=== PATIENT | male | born 1945 | race Hispanic/Latino ===

== ENCOUNTER → 2018-06-10 | Outpatient (CLI) | payer MEDICARE, OTHER | END | disposition home or self-care (01) | LOC: OIH 16:18 | PROVIDERS: ATTEND Family Medicine | DX: I70.0 Atherosclerosis of aorta (principal); Z87.891 Personal history of nicotine dependence | CPT/HCPCS: 71046 ==

== ENCOUNTER 2020-04-02 11:58 | Inpatient (IN) | payer MEDICARE, OTHER ==
[~2020-04-02] VITALS: Ht 167.6 cm; Wt 71.1 kg
[2020-04-02] MEDS ORDERED: IOHEXOL-350 75 ML VIAL IV ONE (12:25)
[2020-04-02 13:02] LABS: BASOPHILS % (AUTO) 0.2 % (0.0-5.0); HEMATOCRIT 41.1 % (42-54); LYMPHOCYTES % (AUTO) 5.8 % (21.0-51.0); MEAN CORPUSCULAR HGB CONC 34.3 g/dL (32.0-36.0); MEAN CORPUSCULAR VOLUME 87.4 fL (79-99); MONOCYTES % (AUTO) 5.6 % (3.0-13.0); PLATELET COUNT (AUTO) 168 K/uL (130-400); RED CELL DISTRIBUTION WIDTH 12.1 % (11.0-15.5)
[2020-04-02 13:44] LABS: CREATININE 0.9 mg/dL (0.5-1.5); POTASSIUM 3.7 mmol/L (3.5-5.1)
[2020-04-02 13:51] LABS: INR 0.93 (0.85-1.15); PARTIAL THROMBOPLASTIN TIME 24.6 SEC (26.3-35.5); PROTHROMBIN TIME 10.1 SEC (9.6-11.6)
[2020-04-02 14:07] LABS: BILIRUBIN,TOTAL 1.4 mg/dL (0.2-1.0); TOTAL PROTEIN, SERUM 7.7 g/dL (6.0-8.3)
[2020-04-02] MEDS ORDERED: ASPIRIN 300 MG SUPPOSITORY PR ONE (15:04)
[2020-04-02 15:49] LABS: APPEARANCE,URINE Clear (CLEAR); BILIRUBIN,URINE Negative (NEGATIVE); COLOR,URINE Yellow (YELLOW); GLUCOSE, URINE (UA) Negative (NEGATIVE); KETONES,URINE Trace mg/dL (NEGATIVE); LEUKOCYTE ESTERASE ,URINE Negative (NEGATIVE); NITRATE,URINE Negative (NEGATIVE); OCCULT BLOOD,URINE Trace (NEGATIVE); PH,URINE 7.5 (5.0-8.0); PROTEIN,URINE Negative (NEGATIVE)
[2020-04-02 15:55] LABS: AMPHET/METH SCREEN,URINE NEGATIVE (NEGATIVE); BARBITURATE SCREEN, URINE NEGATIVE (NEGATIVE); BENZODIAZEPINES SCREEN,URINE NEGATIVE (NEGATIVE); CANNABINOID SCREEN,URINE NEGATIVE (NEGATIVE); COCAINE SCREEN,URINE NEGATIVE (NEGATIVE); OPIATE SCREEN,URINE NEGATIVE (NEGATIVE); PHENCYCLIDINE SCREEN,URINE NEGATIVE (NEGATIVE)
[2020-04-02 16:30] LABS: RBC,URINE 0-1 /HPF (0-1)
[2020-04-02 16:31] LABS: BACTERIA,URINE Rare /HPF (None Seen); SQUAMOUS EPITHELIAL CELL,UR None Seen /HPF (0-2); WBC,URINE 0-1 /HPF (0-1)
[2020-04-02] MEDS: SODIUM CHLORIDE 0.9% 1000ML 1,000 ML IV SCH (17:04)
[2020-04-02] MEDS ORDERED: ACETAMINOPHEN 325 MG TAB PO PRN ×2 (17:15)
[2020-04-02] MEDS: CEFTRIAXONE SODIUM 1 GM IV SCH (17:15)
[2020-04-02] MEDS ORDERED: ONDANSETRON HCL 4 MG/2 ML VIAL IV PRN (17:15)
[2020-04-02] MEDS ORDERED: MORPHINE SULFATE 2 MG/ML 1ML SYG IV PRN (17:15)
[2020-04-02] MEDS ORDERED: CEFTRIAXONE SODIUM 1 GM ONE (18:00)
[2020-04-02] MEDS ORDERED: SODIUM CHLORIDE 0.9% 1000ML 1,000 ML IV ONE (18:01)
[2020-04-02] MEDS ORDERED: SODIUM CHLORIDE 0.9% 50 ML IV ONE (18:01)
[2020-04-02 19:10] LABS: TROPONIN I 1.02 ng/mL (0.00-0.06)
[2020-04-02 19:45] VITALS: BP 126/62
--- NOTE | 2020-04-02 19:45 | NUR ---
Received pt, conversant with NS at 100cc/hr infusing well, routine assessment done, pt noted flaccid on his left side, reminded NPO, denies discomfort, verified home medication, unable to recall, we will need to follow up with family once someone will call for the pt.
[2020-04-02] MEDS: ATORVASTATIN CALCIUM 40 MG TABLET PO SCH (21:00)
[2020-04-02] MEDS: FAMOTIDINE/PF 20 MG/2 ML VIAL IV SCH (21:00)
[2020-04-02] MEDS ORDERED: ATORVASTATIN CALCIUM 40 MG TABLET ONE (21:34)
[2020-04-02] MEDS ORDERED: FAMOTIDINE/PF 20 MG/2 ML VIAL IV ONE (21:35)
[2020-04-03] VITALS: BP 139/75
[2020-04-03 02:04] LABS: TROPONIN I 1.36 ng/mL (0.00-0.06)
[2020-04-03] MEDS: SODIUM CHLORIDE 0.9% 1000ML 1,000 ML IV SCH ×2 (03:04→13:04)
[2020-04-03] MEDS ORDERED: SODIUM CHLORIDE 0.9% 1000ML 1,000 ML IV ONE (03:46)
[2020-04-03 04:00] VITALS: BP 142/78
[2020-04-03] MEDS ORDERED: CEFTRIAXONE SODIUM 1 GM ONE ×2 (05:08→16:35)
[2020-04-03 07:05] LABS: BASOPHILS % (AUTO) 0.2 % (0.0-5.0); EOSINOPHILS % (AUTO) 1.3 % (0.0-8.0); HEMATOCRIT 40.9 % (42-54); LYMPHOCYTES % (AUTO) 12.5 % (21.0-51.0); MEAN CORPUSCULAR HEMOGLOBIN 30.2 pg (27.0-33.0); MEAN CORPUSCULAR HGB CONC 34.2 g/dL (32.0-36.0); MEAN CORPUSCULAR VOLUME 88.1 fL (79-99); MONOCYTES % (AUTO) 6.7 % (3.0-13.0); NEUTROPHILS % (AUTO) 78.9 % (40.0-77.0); PLATELET COUNT (AUTO) 163 K/uL (130-400); RED BLOOD CELL COUNT(AUTO) 4.64 MIL/uL (4.50-6.20); RED CELL DISTRIBUTION WIDTH 12.2 % (11.0-15.5); WHITE BLOOD COUNT (AUTO) 8.6 K/uL (4.8-10.8)
[2020-04-03 07:43] LABS: ALANINE AMINOTRANSFERASE 31 U/L (12-78); ALBUMIN 3.3 g/dL (3.5-5.0); ASPARTATE AMINOTRANSFERASE 47 U/L (10-37); BILIRUBIN,TOTAL 1.7 mg/dL (0.2-1.0); CARBON DIOXIDE 25 mmol/L (21-32); CHLORIDE 105 mmol/L (101-111); CREATININE 0.7 mg/dL (0.5-1.5); GLOMERULAR FILTR. RATE CALC 117 mL/min (>60); GLUCOSE,RANDOM 98 mg/dL (70-105); MYOGLOBIN 193 ng/mL (10-92); POTASSIUM 3.6 mmol/L (3.5-5.1); SODIUM SERUM 139 mmol/L (136-145); TOTAL PROTEIN, SERUM 6.2 g/dL (6.0-8.3); TROPONIN I 0.08 ng/mL (0.00-0.06); UREA NITROGEN, BLOOD 10 mg/dL (7-18)
[2020-04-03] MEDS: ASPIRIN 81MG TAB.CHEW PO SCH (09:00)
[2020-04-03] MEDS ORDERED: ENOXAPARIN SODIUM 40 MG/0.4 ML SYRINGE SQ SCH (09:00)
[2020-04-03] MEDS: FAMOTIDINE/PF 20 MG/2 ML VIAL IV SCH ×2 (09:00→21:00)
[2020-04-03] MEDS ORDERED: ASPIRIN 81MG TAB.CHEW ONE (09:47)
[2020-04-03] MEDS ORDERED: FAMOTIDINE/PF 20 MG/2 ML VIAL IV ONE (09:48)
[2020-04-03] MEDS ORDERED: ENOXAPARIN SODIUM 40 MG/0.4 ML SYRINGE SQ ONE (09:48)
[2020-04-03 10:45] LABS: CREATINE KINASE, TOTAL 1473 U/L (21-232)
--- NOTE | 2020-04-03 14:43 | NUR ---
cm note call made to pts listed contact son deborah darby, pt tod robbins with spouse, independent with ambulation and adls. pt drives, no dme. states dcplan is home or dependent on md recommendations, possible rehab. dependent on pt recovery. Addendum: 04/03/20 at 1448 by OMARI RAO CM Amended: Links added.
[2020-04-03 15:39] LABS: TROPONIN I 1.01 ng/mL (0.00-0.06)
[2020-04-03] MEDS ORDERED: ENOXAPARIN SODIUM 80 MG/0.8 ML SQ SCH (21:00)
[2020-04-03] MEDS: ATORVASTATIN CALCIUM 40 MG TABLET PO SCH (21:00)
[2020-04-03] MEDS ORDERED: ENOXAPARIN SODIUM 80 MG/0.8 ML SQ ONE (22:26)
[2020-04-03] MEDS ORDERED: FAMOTIDINE 20MG TAB 20 MG TAB ONE (22:26)
[2020-04-03] MEDS ORDERED: ATORVASTATIN CALCIUM 40 MG TABLET ONE (22:27)
[2020-04-04] MEDS: SODIUM CHLORIDE 0.9% 1000ML 1,000 ML IV SCH (04:12)
[2020-04-04] MEDS ORDERED: CEFTRIAXONE SODIUM 1 GM ONE ×2 (05:47→10:24)
--- NOTE | 2020-04-04 07:38 | NUR ---
Patient still in ER department 04/04/2020, awaiting for patient to be transferred to medical floor or to [facility] unit in order to be able to initiate skilled Physical Therapy Evaluation as ordered by BRITTANY Fox as of 04/03/2020. Addendum: 04/04/20 at 0740 by YING ROLLINS, PT PT Amended: Links added.
[2020-04-04 07:57] LABS: ALBUMIN 2.7 g/dL (3.5-5.0); BILIRUBIN,TOTAL 1.6 mg/dL (0.2-1.0); CREATININE 0.7 mg/dL (0.5-1.5); POTASSIUM 3.6 mmol/L (3.5-5.1); TOTAL PROTEIN, SERUM 6.3 g/dL (6.0-8.3)
[2020-04-04 08:09] LABS: CRP QUANTITATIVE 155.4 mg/L (0.00-9.0)
[2020-04-04] MEDS: FAMOTIDINE/PF 20 MG/2 ML VIAL IV SCH ×2 (09:00→21:00)
[2020-04-04] MEDS ORDERED: ASPIRIN 81MG TAB.CHEW ONE (10:23)
[2020-04-04] MEDS ORDERED: FAMOTIDINE/PF 20 MG/2 ML VIAL IV ONE (10:24)
[2020-04-04 10:57] LABS: HEMATOCRIT 38.2 % (42-54); MEAN CORPUSCULAR HEMOGLOBIN 30.4 pg (27.0-33.0); MEAN CORPUSCULAR VOLUME 89.5 fL (79-99); RED BLOOD CELL COUNT(AUTO) 4.27 MIL/uL (4.50-6.20); RED CELL DISTRIBUTION WIDTH 12.5 % (11.0-15.5); WHITE BLOOD COUNT (AUTO) 10.1 K/uL (4.8-10.8)
--- NOTE | 2020-04-04 13:00 | NUR ---
DISCHARGE PLANNING WITH SON- PT NEEDS PLACEMENT 2/2 TO HEMIPARESIS STILL PENDING PT NOTES, BUT MD NOTES SAY 1/ STRENGTH IN LUE, AND DYSARTHRIA NEEDS PT, OT, ST; WAITING COVID STATUS TO MOVE OUT OF THE ER VERBAL INGE PER SON- PACKET PREPARED FIRST CHOICE [facility], SECOND CHOICE [facility] Addendum: 04/04/20 at 1610 by CAROLINA VALDES RN CM Amended: Links added.
[2020-04-04] MEDS ORDERED: IOHEXOL-350 75 ML VIAL IV ONE (14:54)
[2020-04-04 15:18] LABS: BASOPHILS % (AUTO) 0.3 % (0.0-5.0); EOSINOPHILS % (AUTO) 1.4 % (0.0-8.0); HEMATOCRIT 39.2 % (42-54); LYMPHOCYTES % (AUTO) 14.1 % (21.0-51.0); MEAN CORPUSCULAR HEMOGLOBIN 30.4 pg (27.0-33.0); MEAN CORPUSCULAR HGB CONC 34.7 g/dL (32.0-36.0); MEAN CORPUSCULAR VOLUME 87.5 fL (79-99); MONOCYTES % (AUTO) 6.3 % (3.0-13.0); NEUTROPHILS % (AUTO) 77.7 % (40.0-77.0); PLATELET COUNT (AUTO) 147 K/uL (130-400); RED BLOOD CELL COUNT(AUTO) 4.48 MIL/uL (4.50-6.20); RED CELL DISTRIBUTION WIDTH 12.1 % (11.0-15.5); WHITE BLOOD COUNT (AUTO) 8.7 K/uL (4.8-10.8)
[2020-04-04] MEDS: DOXYCYCLINE HYCLATE 100 MG TABLET PO SCH (21:00)
[2020-04-04] MEDS: ATORVASTATIN CALCIUM 40 MG TABLET PO SCH (21:00)
[2020-04-04] MEDS ORDERED: FAMOTIDINE 20MG TAB 20 MG TAB ONE (21:06)
[2020-04-04] MEDS ORDERED: ATORVASTATIN CALCIUM 40 MG TABLET ONE (21:07)
[2020-04-04] MEDS ORDERED: DOXYCYCLINE HYCLATE 100 MG TABLET PO ONE (21:07)
[2020-04-05] MEDS ORDERED: CEFTRIAXONE SODIUM 1 GM ONE (05:19)
[2020-04-05 06:58] LABS: BASOPHILS % (AUTO) 0.5 % (0.0-5.0); EOSINOPHILS % (AUTO) 1.9 % (0.0-8.0); HEMATOCRIT 39.1 % (42-54); LYMPHOCYTES % (AUTO) 16.7 % (21.0-51.0); MEAN CORPUSCULAR HEMOGLOBIN 29.6 pg (27.0-33.0); MEAN CORPUSCULAR VOLUME 87.1 fL (79-99); MONOCYTES % (AUTO) 7.9 % (3.0-13.0); NEUTROPHILS % (AUTO) 72.5 % (40.0-77.0); PLATELET COUNT (AUTO) 154 K/uL (130-400); RED BLOOD CELL COUNT(AUTO) 4.49 MIL/uL (4.50-6.20); RED CELL DISTRIBUTION WIDTH 12.1 % (11.0-15.5); WHITE BLOOD COUNT (AUTO) 6.5 K/uL (4.8-10.8)
[2020-04-05 07:22] LABS: BILIRUBIN,TOTAL 0.8 mg/dL (0.2-1.0); CREATININE 0.5 mg/dL (0.5-1.5); CRP QUANTITATIVE 107.5 mg/L (0.00-9.0); TOTAL PROTEIN, SERUM 4.3 g/dL (6.0-8.3)
[2020-04-05 07:26] LABS: POTASSIUM 2.6 mmol/L (3.5-5.1)
[2020-04-05] MEDS ORDERED: ASPIRIN 81MG TAB.CHEW ONE (07:27)
[2020-04-05] MEDS ORDERED: DOXYCYCLINE HYCLATE 100 MG TABLET PO ONE (07:27)
[2020-04-05] MEDS ORDERED: FAMOTIDINE/PF 20 MG/2 ML VIAL IV ONE (07:28)
[2020-04-05] MEDS: ASPIRIN 81MG TAB.CHEW PO SCH (09:00)
[2020-04-05] MEDS: DOXYCYCLINE HYCLATE 100 MG TABLET PO SCH ×2 (09:00→20:33)
--- NOTE | 2020-04-05 10:19 | NUR ---
patient still in ER department, awaiting for patient to be transferred to Medical floor to be able to initiate skilled Physical Therapy Evaluation. Addendum: 04/05/20 at 1020 by YING ROLLINS, PT PT Amended: Links added.
--- NOTE | 2020-04-05 11:30 | NUR ---
COGNITIVE-LINGUISTIC EVAL COMPLETED. Pt PRESENTS WITH MILD DYSARTHRIA. EVALUATION: Pt IS AAOX3 INDEPENDENTLY. Pt ABLE TO REQUEST WANTS AND NEEDS. Pt ABLE TO TELL TIME AND COMPLETE SIMPLE MATH PROBLEMS. Pt ABLE TO RECALL INFORMATION AFTER A SHORT DELAY. Pt WITH LEFT SIDED FACIAL DROOP RESTRICTING ROM, WITH OBVIOUS DECREASE IN ROM; AFFECTING MOTOR SPEECH. Pt IS INTELLIGIBLE AT 75% TO UNKNOWN LISTENER IN RUNNING SPEECH. Pt PRESENTS WITH MILD DYSARTHRIA AT THIS TIME. RECOMMENDATIONS: 1. SKILLED SPEECH THERAPY 3-5XWK TO INCREASED INTELLIGIBILITY IN ALL SETTINGS. LTG#1: Pt WILL BE INTELLIGIBLE AT 100% ACCURACY TO REQUESTS WANTS AND NEEDS IN ALL SETTINGS. STG#1: Pt WILL COMPLETE ORAL MOTOR EXERCISES WITH 80% ACCURACY. STG#2: Pt WILL COMPLETE AMRs/SMRs WITH 80% ACCURACY. STG#3: Pt WILL USE COMPENSATORY STRATEGIES OF SLOW RATE OF SPEECH AND OVERARTICULATION AT THE PHRASE LEVEL WITH 80% ACCURACY. STG#4: SKILLED EDUCATION Pt/FAMILY/STAFF. G-CODES MOTOR SPEECH: [id number] Addendum: 04/05/20 at [address] Amended: Links added.
--- NOTE | 2020-04-05 12:19 | NUR ---
DYSPHAGIA EVAL COMPLETED. +S/S OF ASPIRATION WITH THIN LIQUIDS. RECOMMEND MECHANICAL SOFT/CHOPPED, NECTAR-THICK LIQUIDS; PILLS CRUSHED WITH APPLESAUCE. RECOMMENDATIONS: DYSPHAGIA THERAPY 3-5X WEEK TO INCREASE ORAL MOTOR STRENGTH AND PHARYNGEAL SWALLOW: LTG#1: Pt WILL TOLERATE LEAST RESTRICTIVE DIET TO MEET NUTRITION/HYDRATION WITH NO S/S OF ASPIRATION. LTG#2: SKILLED EDUCATION Pt/FAMILY/STAFF STG#1: Pt WILL PARTICIPATE IN LARYNGEAL ELEVATION/EXCURSION EXERCISES WITH 80% ACCURACY. STG#2: Pt WILL PARTICIPATE IN TONGUE BASE RETRACTION EXERCISES WITH 80% ACCURACY. STG#3: Pt WILL PARTICIPATE IN ORAL MOTOR EXERCISES WITH 80% ACCURACY. STG#4: Pt WILL PARTICIPATE IN THERAPEUTIC TRIALS OF ADVANCED TEXTURES OF THIN LIQUIDS AND REGULAR SOLIDS WITH NO OVERT S/S OF ASPIRATION. STG#5: PT WILL TOLERATE MECHANICAL SOFT/CHOPPED, NECTAR-THICK LIQUIDS WITH NO OVERT S/S OF ASPIRATION. STG#6: SKILLED EDUCATION Pt/FAMILY/STAFF. Addendum: 04/05/20 at 1223 by ZHANNA HOFFMANN, [facility] ST Amended: Links added.
--- NOTE | 2020-04-05 14:10 | NUR ---
2 D ECHO PROCEDURE, IN PROCESS .
[2020-04-05] MEDS ORDERED: POTASSIUM CHLORIDE 10% ELIXIR 20 MEQ/15 ML UDCUP PO PRN (14:15)
[2020-04-05 14:18] VITALS: BP 128/69
--- NOTE | 2020-04-05 14:46 | NUR ---
REFERRAL IN PROCESS FOR [facility], PASSR, COVID TEST, LOOM OVERHAULER, PKT SENT PENDING PT EVAL/NOTES PENDING CARDIOLOGY CONSULT SINCE 04/02- CALL TO [facility]ART CLINIC- WAS I NOT IN THEIR RECORD- GAIL GRIMALDO WILL BE NOTIFIED TO VISIT PATIENT PENDING AUTH /APPROVAL Addendum: 04/05/20 at 1448 by CAROLINA VALDES RN CM Amended: Links added.
[2020-04-05] MEDS: POTASSIUM CHLORIDE 10MEQ/100ML 100 ML IV PRN ×2 (15:29→20:59)
[2020-04-05] MEDS: LIDOCAINE HCL-MPF 1% 2ML VIAL IV PRN ×2 (15:30→20:59)
[2020-04-05] MEDS: POTASSIUM CHLORIDE 20 MEQ ERTAB PO PRN ×2 (15:31→17:32)
[2020-04-05 16:40] VITALS: BP 141/74
[2020-04-05] MEDS: CEFTRIAXONE SODIUM 1 GM IV SCH (17:33)
[2020-04-05 20:00] VITALS: BP 138/73
[2020-04-05] MEDS: ATORVASTATIN CALCIUM 40 MG TABLET PO SCH (20:33)
[2020-04-05] MEDS: FAMOTIDINE/PF 20 MG/2 ML VIAL IV SCH (20:33)
[2020-04-05] MEDS: SODIUM CHLORIDE 0.9% 1000ML 1,000 ML IV SCH (20:33)
[2020-04-05 23:52] VITALS: BP 126/62
[2020-04-06] MEDS: CEFTRIAXONE SODIUM 1 GM IV SCH ×2 (04:09→17:14)
[2020-04-06 04:18] VITALS: BP 132/66
[2020-04-06 08:05] VITALS: BP 124/73
--- NOTE | 2020-04-06 11:10 | NUR ---
Stress Test Pt taken by bed in good condition. IV =>S/L for transport, telemetry pack in place. No current s/s of pain or resp distress noted with mask in place.
[2020-04-06] MEDS ORDERED: REGADENOSON 0.4 MG/5 ML PF SYG IVP SCH (11:30)
--- NOTE | 2020-04-06 11:43 | NUR ---
CM Note: [facility] pending approval CM spoke to Rhiannon eason/Ana pt currently pending approval at this time. Pending covid result as well has sobeida. EMS arranged and faxed today incase, primary nurse to call [facility] once pt ready to DC. Primary nurse aware. CM to cont to follow up.
--- NOTE | 2020-04-06 13:08 | NUR ---
HOLD TREATMENT. PT NPO FOR PROCEDURES TODAY (COORDINATED WITH CHARGE NURSE AUGUSTE). DOPE MAINTENANCE WORKER TO FOLLOW UP WITH Pt TOMORROW. Addendum: 04/06/20 at 1314 by ZHANNA HOFFMANN, [facility] ST Amended: Links added.
--- NOTE | 2020-04-06 14:17 | NUR ---
CM Note: send covid result to [facility] CM sent covid result to Ana. Spoke to Rhiannon, received result. Pt pending approval. Primary nurse aware. CM to cont to follow up.
--- NOTE | 2020-04-06 14:30 | NUR ---
pt retuned to the unit by bed in good condition with no c/o pain or resp difficulty
[2020-04-06 14:57] VITALS: BP 133/78
[2020-04-06] MEDS: FAMOTIDINE/PF 20 MG/2 ML VIAL IV SCH ×2 (17:13→20:28)
[2020-04-06] MEDS: SODIUM CHLORIDE 0.9% 1000ML 1,000 ML IV SCH ×2 (17:13→20:43)
[2020-04-06] MEDS: DOXYCYCLINE HYCLATE 100 MG TABLET PO SCH ×2 (17:13→20:28)
[2020-04-06 20:12] VITALS: BP 124/62
[2020-04-06] MEDS: ATORVASTATIN CALCIUM 40 MG TABLET PO SCH (20:28)
[2020-04-07 00:16] VITALS: BP 119/72
[2020-04-07] MEDS: CEFTRIAXONE SODIUM 1 GM IV SCH ×2 (03:49→17:01)
[2020-04-07 04:20] VITALS: BP 122/61
[2020-04-07 06:54] LABS: BASOPHILS % (AUTO) 0.5 % (0.0-5.0); EOSINOPHILS % (AUTO) 4.5 % (0.0-8.0); LYMPHOCYTES % (AUTO) 21.3 % (21.0-51.0); MEAN CORPUSCULAR HEMOGLOBIN 30.3 pg (27.0-33.0); MEAN CORPUSCULAR HGB CONC 34.4 g/dL (32.0-36.0); MEAN CORPUSCULAR VOLUME 88.2 fL (79-99); MONOCYTES % (AUTO) 8.8 % (3.0-13.0); NEUTROPHILS % (AUTO) 63.8 % (40.0-77.0); PLATELET COUNT (AUTO) 214 K/uL (130-400); RED BLOOD CELL COUNT(AUTO) 4.65 MIL/uL (4.50-6.20); RED CELL DISTRIBUTION WIDTH 11.9 % (11.0-15.5); WHITE BLOOD COUNT (AUTO) 6.4 K/uL (4.8-10.8)
[2020-04-07 07:02] LABS: CREATININE 0.8 mg/dL (0.5-1.5); POTASSIUM 3.9 mmol/L (3.5-5.1)
[2020-04-07 08:18] VITALS: BP 115/86
[2020-04-07] MEDS: FAMOTIDINE/PF 20 MG/2 ML VIAL IV SCH ×2 (10:19→21:25)
[2020-04-07] MEDS: ASPIRIN 81MG TAB.CHEW PO SCH (10:20)
[2020-04-07] MEDS: DOXYCYCLINE HYCLATE 100 MG TABLET PO SCH ×2 (10:20→21:25)
[2020-04-07] MEDS: CLOPIDOGREL BISULFATE 75 MG TAB PO SCH (10:20)
[2020-04-07 12:08] VITALS: BP 112/59
--- NOTE | 2020-04-07 14:19 | NUR ---
CM Note: cancelled [facility] Marlyn, pending approval for [facility] CM spoke to Rhiannon this morning, currently will not be able to take pt, only accepting covid+ as of this morning. cancelled referral. As per Rhiannon have informed insurance. Spouse agreeable to other facility, telephone consent obtained INGE. Faxed order, clinicals, PT, PASRR, Covid Assessments, covid result to [facility], confirmation received. Spoke to Palak eason/Theodora, aware pt had approval for [facility] yesterday, and CM spoke to Shea eason/carine this morning to update regarding change of facility, insurance awaiting request from [facility] and will give approval today, aware dcp today/once approved. Pt pending approval. EMS arranged and faxed for today, primary nurse to call [facility] once pt ready to DC. Primary nurse aware. CM to con to follow up.
[2020-04-07 16:30] VITALS: BP 126/60
[2020-04-07 20:00] VITALS: BP 126/72
[2020-04-07] MEDS: ATORVASTATIN CALCIUM 40 MG TABLET PO SCH (21:25)
[2020-04-08] VITALS: BP 135/65
[2020-04-08 04:00] VITALS: BP 132/75
[2020-04-08] MEDS: CEFTRIAXONE SODIUM 1 GM IV SCH (04:54)
[2020-04-08 06:02] LABS: BASOPHILS % (AUTO) 0.5 % (0.0-5.0); EOSINOPHILS % (AUTO) 4.4 % (0.0-8.0); HEMATOCRIT 41.9 % (42-54); LYMPHOCYTES % (AUTO) 19.9 % (21.0-51.0); MEAN CORPUSCULAR HEMOGLOBIN 29.7 pg (27.0-33.0); MEAN CORPUSCULAR HGB CONC 33.9 g/dL (32.0-36.0); MEAN CORPUSCULAR VOLUME 87.7 fL (79-99); MONOCYTES % (AUTO) 8.6 % (3.0-13.0); NEUTROPHILS % (AUTO) 65.3 % (40.0-77.0); PLATELET COUNT (AUTO) 224 K/uL (130-400); RED BLOOD CELL COUNT(AUTO) 4.78 MIL/uL (4.50-6.20); RED CELL DISTRIBUTION WIDTH 11.9 % (11.0-15.5); WHITE BLOOD COUNT (AUTO) 7.9 K/uL (4.8-10.8)
[2020-04-08 06:24] LABS: ALBUMIN 2.9 g/dL (3.5-5.0); BILIRUBIN,TOTAL 0.5 mg/dL (0.2-1.0); CREATININE 0.8 mg/dL (0.5-1.5); POTASSIUM 3.9 mmol/L (3.5-5.1); TOTAL PROTEIN, SERUM 7.2 g/dL (6.0-8.3)
[2020-04-08 07:17] VITALS: BP 121/66
[2020-04-08] MEDS: SODIUM CHLORIDE 0.9% 1000ML 1,000 ML IV SCH (08:12)
[2020-04-08] MEDS: CLOPIDOGREL BISULFATE 75 MG TAB PO SCH (09:00)
[2020-04-08] MEDS: DOXYCYCLINE HYCLATE 100 MG TABLET PO SCH (09:00)
[2020-04-08] MEDS: ASPIRIN 81MG TAB.CHEW PO SCH (09:00)
[2020-04-08] MEDS: FAMOTIDINE/PF 20 MG/2 ML VIAL IV SCH (09:00)
[2020-04-08 10:58] VITALS: BP 121/68
--- NOTE | 2020-04-08 13:39 | NUR ---
SPEECH THERAPY COMPLETED. CONTINUE [facility] SOFT/CHOPPED, NECTAR-THICK LIQUID DIET. S: Pt SEATED AT 90 DEGREES IN BED WITH LUNCH TRAY IN PLACE. Pt COOPERATIVE DURING THE SESSION. O: Pt CURRENTLY TARGETING DYSARTHRIA AND SWALLOWING GOALS. RESULTS ARE FOLLOWS: SWALLOW GOALS STG#1: Pt WILL PARTICIPATE IN LARYNGEAL ELEVATION/EXCURSION EXERCISES WITH 80% ACCURACY: 70% ACCURACY WITH MIN CUES. STG#2: Pt WILL PARTICIPATE IN TONGUE BASE RETRACTION EXERCISES WITH 80% ACCURACY: NOT TARGETED STG#3: Pt WILL PARTICIPATE IN ORAL MOTOR EXERCISES WITH 80% ACCURACY:60% ACCURACY WITH MAX CUES STG#4: Pt WILL PARTICIPATE IN THERAPEUTIC TRIALS OF ADVANCED TEXTURES OF THIN LIQUIDS AND REGULAR SOLIDS WITH NO OVERT S/S OF ASPIRATION: THIN LIQUIDS PRESENTED VIA CUP SIP WITH OVERT S/S OF ASPIRATION OF DELAYED COUGH RESPONSE AND WET VOCAL QUALITY. Pt WITH RESIDUE IN LEFT LATERAL SULCUS (REMOVED WITH FORK-Pt PREFERS OVER FINGER SWEEP). STG#5: PT WILL TOLERATE MECHANICAL SOFT/CHOPPED, NECTAR-THICK LIQUIDS WITH NO OVERT S/S OF ASPIRATION: MEAL OBSERVATION COMPLETED, Pt WITH NO OVERT S/S OF ASPIRATION DURING LUNCH TRAY. SPEECH GOALS: STG#2: Pt WILL COMPLETE AMRs/SMRs WITH 80% ACCURACY:70% ACCURACY GIVEN MAX CUES. STG#3: Pt WILL USE COMPENSATORY STRATEGIES OF SLOW RATE OF SPEECH AND OVERARTICULATION AT THE PHRASE LEVEL WITH 80% ACCURACY:70% ACCURACY WITH MAX CUES. A: Pt WITH IMPROVED LINGUAL LATERALIZATION AND IMPROVED LEFT SIDED FACIAL MUSCULATURE MOVEMENT. Pt TOLERATING CURRENT DIET. P: RECOMMEND CONTINUED SKILLED SPEECH THERAPY 3-5XWEEK TARGETING SPEECH AND SWALLOWING GOALS. RECOMMEND CONTINUED MECHANICAL SOFT/CHOPPED, NECTAR-THICK LIQUID DIET. RAIL WASHER COORDINATED WITH NURSE MURPHY. RAIL WASHER WILL CONITUE TO FOLLOW Pt. Addendum: 04/08/20 at [address] Amended: Links added.
[2020-04-08 15:56] VITALS: BP 126/77
--- NOTE | 2020-04-08 17:43 | NUR ---
[facility]
--- NOTE | 2020-04-08 18:29 | NUR ---
Discharge Notification: Called patient's son, Luciano Munguia, to notify of transfer to [facility] by EMS. Luciano to notify family. Unable to reach spouse through phone number provided by son as [place] extension.
== END 2020-04-08 18:31 | DRG 64 ==
LOC: EDH 11:58 → EDHIP 17:04 → 3CH 04-05 13:12
PROVIDERS: ADMIT Internal Medicine; ATTEND Internal Medicine
DX: I63.9 Cerebral infarction, unspecified (principal); I21.4 Non-ST elevation (NSTEMI) myocardial infarction; G81.94 Hemiplegia, unspecified affecting left nondominant side; M62.82 Rhabdomyolysis; E87.6 Hypokalemia; E78.5 Hyperlipidemia, unspecified; I95.9 Hypotension, unspecified; Z60.2 Problems related to living alone; Z20.828 Contact with and (suspected) exposure to other viral communicable diseases; W19.XXXA Unspecified fall, initial encounter; Y93.89 Activity, other specified; Y92.89 Other specified places as the place of occurrence of the external cause; Y99.8 Other external cause status; Z87.891 Personal history of nicotine dependence; Z90.49 Acquired absence of other specified parts of digestive tract
CPT/HCPCS: 36415; 70450; 70496; 70498; 70551; 71045; 71275; 78452; 80048; 80053; 80305; 81001; 82550; 82948; 83036; 83721; 83874; 84132; 84145; 84484; 85025; 85027; 85378; 85610; 85730; 86140; 86850; 86900; 86901; 87040; 87426; 87486; 87581; 87633; 87798; 92507; 92522; 92526; 92610; 93005; 93017; 93306; 96374; 97039; A9500; G0378; J0696; J1650; J2785; J3490; J7030; Q9967; U0003

== ENCOUNTER → 2020-12-27 | Outpatient (CLI) | payer OTHER | END | disposition home or self-care (01) | LOC: RAH 09:23 | PROVIDERS: ATTEND Psychiatry & Neurology Neurology | DX: I67.82 Cerebral ischemia (principal); G31.9 Degenerative disease of nervous system, unspecified; I63.9 Cerebral infarction, unspecified | CPT/HCPCS: 70450 ==

== ENCOUNTER → 2023-02-15 | Outpatient (CLI) | payer OTHER ==
[2023-02-15 12:42] LABS: CHOLESTEROL 121 mg/dL (<200); HDL CHOLESTEROL 65 mg/dL (29-71); LDL DIRECT 43 mg/dL (0-99); TRIGLYCERIDES 118 mg/dL (30-200)
== END | disposition home or self-care (01) ==
LOC: LAB 08:34
PROVIDERS: ATTEND Internal Medicine Cardiovascular Disease
DX: E78.5 Hyperlipidemia, unspecified (principal)
CPT/HCPCS: 36415; 80061

== ENCOUNTER 2023-06-05 05:57 | Day surgery (SDC) | payer OTHER ==
[2023-06-03 12:05] VITALS: BP 144/66; PULSE 70; RESP 20
[2023-06-03 12:18] LABS: BASOPHILS # (AUTO) 0.02 K/uL (0.00-0.20); BASOPHILS % (AUTO) 0.3 % (0.0-5.0); EOSINOPHILS % (AUTO) 1.6 % (0.0-8.0); HEMATOCRIT 38.9 % (42-54); IMMATURE GRANULOCYTE ABSOLUTE 0.02 K/uL (0-1); LYMPHOCYTES # (AUTO) 1.1 K/uL (1.0-4.8); LYMPHOCYTES % (AUTO) 17.1 % (21.0-51.0); MEAN CORPUSCULAR HEMOGLOBIN 29.5 pg (27.0-33.0); MEAN CORPUSCULAR HGB CONC 32.6 g/dL (32.0-36.0); MEAN CORPUSCULAR VOLUME 90.3 fL (79-99); MONOCYTES # (AUTO) 0.4 K/uL (0.1-1.0); MONOCYTES % (AUTO) 6.5 % (3.0-13.0); NEUTROPHILS # (AUTO) 4.7 K/uL (1.8-7.7); NEUTROPHILS % (AUTO) 74.2 % (40.0-77.0); PLATELET COUNT (AUTO) 183 K/uL (130-400); RED BLOOD CELL COUNT(AUTO) 4.31 MIL/uL (4.50-6.20); WHITE BLOOD COUNT (AUTO) 6.3 K/uL (4.8-10.8)
[2023-06-03 12:30] LABS: INR < 0.93 (0.85-1.15); PROTHROMBIN TIME 10.3 SEC (9.6-11.6)
[2023-06-03 12:31] LABS: POTASSIUM 4.4 mmol/L (3.5-5.1)
[2023-06-03 12:32] LABS: PARTIAL THROMBOPLASTIN TIME 26.9 SEC (26.3-35.5)
[~2023-06-05] VITALS: Ht 172.7 cm; Wt 67.5 kg
[~2023-06-05 05:57] MED LIST: ATROVENT HFA IH; CLOP-31 PO; EZET10TA48 PO; HYDR-4068 PO; IPRA3S NASAL; METF-444 PO; ROSU20TA73 PO; SERT-439 PO
[2023-06-05 07:00] VITALS: BP 131/61; PULSE 73; RESP 17
[2023-06-05] MEDS ORDERED: 0.9%NACL 1000ML 1,000 ML IV ONE (07:20)
[2023-06-05] MEDS ORDERED: LIDOCAINE HCL 400MG/20ML VIAL ONE (09:52)
[2023-06-05] MEDS ORDERED: OCTYL 2-CYANOACRYLATE 1 EACH TP ONE (09:53)
[2023-06-05 11:07] VITALS: BP 131/68; PULSE 64; RESP 12
== END 2023-06-05 11:20 | disposition home or self-care (01) ==
LOC: DAH 05:57
PROVIDERS: ATTEND Internal Medicine Cardiovascular Disease
DX: Z45.09 Encounter for adjustment and management of other cardiac device (principal); I67.9 Cerebrovascular disease, unspecified; E78.5 Hyperlipidemia, unspecified; Z79.84 Long term (current) use of oral hypoglycemic drugs; Z79.899 Other long term (current) drug therapy; Z98.890 Other specified postprocedural states; Z90.49 Acquired absence of other specified parts of digestive tract; Z87.891 Personal history of nicotine dependence; Z79.01 Long term (current) use of anticoagulants
CPT/HCPCS: 80048; 85025; 85610; 85730; 36415; 93005; 33286; 82948 ×2; A4223 ×3; A4649; J3490; J7030; J1644; A4215; A4222; A4221; A4663; A4216; A4606

== ENCOUNTER 2024-02-29 21:49 | Emergency (ER) | payer OTHER ==
[~2024-02-29] VITALS: Ht 172.7 cm; Wt 62.1 kg
[~2024-02-29 21:49] MED LIST changes: -HYDR-4068 PO
[2024-02-29 22:04] VITALS: BP 124/60; PULSE 64; RESP 16; O2SAT 99
[2024-02-29] MEDS: OCTYL 2-CYANOACRYLATE 1 EACH TP SCH (22:21)
== END 2024-02-29 22:55 | disposition home or self-care (01) ==
LOC: EDH 21:49
DX: S01.511A Laceration without foreign body of lip, initial encounter (principal); X58.XXXA Exposure to other specified factors, initial encounter; Y93.9 Activity, unspecified; Y92.89 Other specified places as the place of occurrence of the external cause; Y99.8 Other external cause status
CPT/HCPCS: 12011; 99281; 99282

== ENCOUNTER 2025-02-07 22:34 | Inpatient (IN) | payer OTHER, MEDICAID ==
[~2025-02-07] VITALS: Ht 160 cm; Wt 53.5 kg
[~2025-02-07 22:34] MED LIST changes: -ATROVENT HFA IH; -CLOP-31 PO; +DAPA5TAB PO; -EZET10TA48 PO; +GLYC2TAB21 PO; -IPRA3S NASAL; -METF-444 PO; -ROSU20TA73 PO; -SERT-439 PO
--- NOTE | 2025-02-07 22:50 | NUR ---
FLUIDS DEFFERED AT THIS TIME PER ED MD, PENDING RESULTS FOR BNP AND CXR.
[2025-02-07 23:09] LABS: BASOPHILS # (AUTO) 0.03 K/uL (0.00-0.20); BASOPHILS % (AUTO) 0.4 % (0.0-5.0); EOSINOPHILS # (AUTO) 0.18 K/uL (0.00-0.70); EOSINOPHILS % (AUTO) 2.6 % (0.0-8.0); HEMATOCRIT 37.8 % (42-54); IMMATURE GRANULOCYTE ABSOLUTE 0.56 K/uL (0-1); LYMPHOCYTES # (AUTO) 0.9 K/uL (1.0-4.8); LYMPHOCYTES % (AUTO) 12.4 % (21.0-51.0); MEAN CORPUSCULAR HEMOGLOBIN 27.8 pg (27.0-33.0); MEAN CORPUSCULAR HGB CONC 31.7 g/dL (32.0-36.0); MEAN CORPUSCULAR VOLUME 87.7 fL (79-99); MONOCYTES # (AUTO) 0.1 K/uL (0.1-1.0); NEUTROPHILS # (AUTO) 5.3 K/uL (1.8-7.7); NEUTROPHILS % (AUTO) 75.6 % (40.0-77.0); NUCLEATED RED BLOOD CELLS 0.9 % (0.0-0.19); PLATELET COUNT (AUTO) 305 K/uL (130-400); RED BLOOD CELL COUNT(AUTO) 4.31 MIL/uL (4.50-6.20); RED CELL DISTRIBUTION WIDTH 14.6 % (11.0-15.5)
[2025-02-07 23:16] LABS: RAPID GROUP A STREP negative (NEGATIVE)
[2025-02-07 23:17] LABS: CREATININE 0.8 mg/dL (0.5-1.3); POTASSIUM 5.1 mmol/L (3.5-5.1)
[2025-02-07 23:18] LABS: SARS-CoV-2, RNA, NAAT NEGATIVE SARS CoV-2 (NEGATIVE)
[2025-02-07 23:25] LABS: INFLUENZA TYPE A Negative For Type A (NEGATIVE); INFLUENZA TYPE B Negative For Type B (NEGATIVE)
[2025-02-07 23:46] LABS: INR 1.03 (0.85-1.15); PROTHROMBIN TIME 10.9 SEC (9.6-11.6)
[2025-02-07] MEDS: IpraTROPium/alBUTERol SULFATE 3 ML SOLUTION IH ONE (23:46)
[2025-02-07 23:47] VITALS: PULSE 126; RESP 20
[2025-02-07] MEDS: DOXYCYCLINE 100MG+NS 250ML 250 ML IV SCH (23:48)
[2025-02-07 23:50] LABS: B-TYPE NATRIURETIC PEPTIDE 98 pg/mL (0-100)
[2025-02-08] VITALS (92 sets, daily range): BP systolic 71–150; BP diastolic 38–82; PULSE 60–133; RESP 13–60; TEMP 98.2–99.7; O2SAT 96–100
--- NOTE | 2025-02-08 00:09 | NUR ---
PATIENT REMAINS TACHYPNEIC, ED MD MADE AWARE, ORDERED FOR BIPAP, RT MADE AWARE.
[2025-02-08 00:19] LABS: ABG BASE EXCESS -1.4 mmol/L (-2.0-3.0); ABG HCO3 21.3 mmol/L (21.0-28.0); ABG OXYGEN SATURATION 96.8 % (94.0-98.0); ABG PCO2 30 mmHg (35-48); ABG PH 7.474 (7.350-7.450); CARBON MONOXIDE 0.4 % (0.5-1.5); HHb 3.2; PO2, ARTERIAL BG 86.5 mmHg (83.0-108.0); VENT MODE, BG NRB RB (ROOM AIR)
[2025-02-08 00:22] LABS: ABG BASE EXCESS -2.3 mmol/L (-2.0-3.0); ABG HCO3 19.9 mmol/L (21.0-28.0); ABG OXYGEN SATURATION 97.5 % (94.0-98.0); ABG PCO2 28 mmHg (35-48); ABG PH 7.469 (7.350-7.450); PO2, ARTERIAL BG 91.7 mmHg (83.0-108.0); VENT MODE, BG NRB MASK RB (ROOM AIR)
[2025-02-08] MEDS: diazePAM 5 MG/ML 2 ML SYG IV STA (00:36)
[2025-02-08] MEDS: acetaMINOPHEN 650 MG SUPPOSITORY RC ONE ×2 (00:56→01:06)
[2025-02-08 00:59] LABS: ADD UA MICROSCOPIC YES; APPEARANCE,URINE CLEAR (CLEAR); BILIRUBIN,URINE NEGATIVE (NEGATIVE); COLOR,URINE LIGHT-YELLOW (YELLOW); GLUCOSE, URINE (UA) >=1000 mg/dL (NEGATIVE); KETONES,URINE NEGATIVE (NEGATIVE); LEUKOCYTE ESTERASE ,URINE NEGATIVE Leu/uL (NEGATIVE); NITRATE,URINE NEGATIVE (NEGATIVE); OCCULT BLOOD,URINE MODERATE (NEGATIVE); PROTEIN,URINE NEGATIVE (NEGATIVE); UROBILINOGEN,URINE 0.2 mg/dL (0.2-1.0)
--- NOTE | 2025-02-08 00:59 | NUR ---
PATIENT CONDITION; PATIENT REMAINS TACHYPNIC AND IS NOT TOLERATING BIPAP; ED MD AT BEDSIDE; DECISION TO INTUBATE PATIENT WAS MADE; PATIENT SON AT BEDSIDE EDUCATED BY ED MD AND ED RN REGARDING CONDITION AND PROCEDURE. PATIENT CODE STATUS CLARIFIED WITH SON. PATIENT REMAINS FULL CODE AT THIS TIME. WITH NO RESTRICTIONS. PATIENTS SON STATED UNDERSTANDING OF PROCEDURE AND IS IN AGREEMENT WITH PROCEDURE.
--- NOTE | 2025-02-08 01:02 | ERN ---
General Chief Complaint: Dyspnea/Respdistress Stated Complaint: VOMITING AFTER PEG FEEDING Time Seen by MD: 22:36 Source: family History of Present Illness Initial Comments Patient is a an 80-year-old male coming in to be evaluated for nausea and vomit ing and shortness of breath. Per son patient has been having this since the last feet. Patient was recently discharged for similar presentation one week ago. Patient has a PEG tube in place. Allergies: Coded Allergies: No Known Allergies (Verified Allergy, Unknown, 04/02/20) Penicillins (Unverified Allergy, Unknown, 02/07/25) Home Meds Reported Medications Dapagliflozin Propanediol (Farxiga) 5 Mg Tablet, 1 TAB PO DAILY for 30 Days, #30 TAB 0 Refills 12/25/24 Glycopyrrolate (Glycopyrrolate) 2 Mg Tablet, 1 TAB PO DAILY for 30 Days, #30 TAB 0 Refills 12/25/24 Past Medical History Past Medical History: CVA, Dementia, Hypertension Medical History Other: Memory problems, SEPSIS, GI BLEED Past Surgical History: Unknown Social History Social History: Lives with family ROS Dictation CONSTITUTIONAL: chills, fever, weakness, no diaphoresis, no malaise. HEAD/FACE: No signs of trauma. EENT: No eye pain, no blurred vision, no tearing, no double vision, no ear pain, no ear discharge, no nose pain, no nasal congestion, no throat pain, no throat swelling, no mouth pain. RESPIRATORY: No cough, no orthopnea, nSOB, no stridor, no wheezing. CARDIOVASCULAR: No chest pain, no edema, no palpitations, no syncope. GASTROINTESTINAL/ABDOMINAL: No abdominal pain, no constipation, no diarrhea, no nausea, no vomiting. GENITOURINARY: No abnormal discharge, no dysuria, no frequent urination, no hematuria. No complaints of pain in the genitals. MUSCULOSKELETAL: No back pain, no gout, no joint pain, no joint swelling, no muscle pain, no muscle stiffness, no neck pain. INTEGUMENTARY: No change in color, no change in hair/nails, no dryness, no lesion, no lumps, no rash. NEUROLOGICAL/PSYCH: No anxiety, not depressed, no emotional problem, no headache, no numbness, no pre-existing deficit, no history of seizures, no tr emors, no weakness. HEMATOLOGIC/LYMPHATIC: Not anemic, no history of blood clots, no apparent bleeding, no bruising, glands not swollen. All Systems Negative, Except as Noted. Physical Exam Physical Exam Dictation VITAL SIGNS: Reviewed. GENERAL APPEARANCE: Alert, oriented x3, no acute distress, obese. HEAD AND FACE: Non-traumatic. EYES: PERRL, pink conjunctivas, eyelid no trauma, anterior chamber clear. EARS: Pinnas intact and no signs of trauma or erythema. Ear canals clear and no discharge. TMs no erythema. NOSE: No discharge, no bleeding. OROPHARYNX: Mouth normal, teeth no caries, tongue pink. Pharynx clear, no erythema. Tonsils no exudates, no abscesses noted. Mucous membrane moist. NECK: Supple, non-tender, no thyromegaly, no masses, no JVD, no bruits. BREAST: Deferred. CHEST: No tenderness, no crepitus, no paradoxical movement, no retractions. LUNGS: Clear, well-ventilated, symmetric, rales, no wheezing, rhonchi, stridor, good breath sounds bilaterally. HEART: Regular rate, regular rhythm, no murmur, no gallops. VASCULAR: No peripheral edema. ABDOMEN: Soft, positive bowel sounds, nondistended, no guarding, nontender, no rebound, no masses no hepatomegaly, no splenomegaly, no Neal's sign, no he rnias. RECTAL: Deferred. GENITAL: Deferred. NEUROLOGICAL: Normal speech, gross motor function intact, gross sensory functio n intact. MUSCULOSKELETAL: Neck nontender, full range of motion, back nontender, full range of motion. EXTREMITIES: Nontender, full range of motion. SKIN: Color pink, dry, no turgor, no rash, no lacerations, no abrasions, no contusions. LYMPHATICS: Deferred. Results Laboratory and Microbiology Lab and Micro Result Laboratory Tests Test 02/07/25 22:30 02/07/25 22:45 02/07/25 22:59 02/07/25 23:28 Sodium Level 136 mmol/L (136-145) Potassium Level 5.1 mmol/L (3.5-5.1) Chloride Level 99 mmol/L (101-111) L Carbon Dioxide Level 25 mmol/L (21-32) Blood Urea Nitrogen 15 mg/dL (7-18) Creatinine 0.8 mg/dL (0.5-1.3) Glomerular Filtration Rate Calc 89 mL/min (>90) Random Glucose 202 mg/dL (70-105) H Lactic Acid Level 4.5 mmol/L (0.8-2.5) H Total Calcium 9.0 mg/dL (8.5-10.1) Total Creatine Kinase 135 U/L (21-232) # Troponin I High Sensitivity 5 ng/L (4-75) White Blood Count 7.0 K/uL (4.8-10.8) Red Blood Count 4.31 MIL/uL (4.50-6.20) L Hemoglobin 12.0 g/dL (14.0-18.0) #L Hematocrit 37.8 % (42-54) #L Mean Corpuscular Volume 87.7 fL (79-99) Mean Corpuscular Hemoglobin 27.8 pg (27.0-33.0) Mean Corpuscular Hemoglobin Concent 31.7 g/dL (32.0-36.0) L Red Cell Distribution Width 14.6 % (11.0-15.5) Platelet Count 305 K/uL (130-400) Mean Platelet Volume 10.3 fL (7.5-10.5) Immature Granulocyte % (Auto) 8.0 % (0-1) H Neutrophils (%) (Auto) 75.6 % (40.0-77.0) Lymphocytes (%) (Auto) 12.4 % (21.0-51.0) L Monocytes (%) (Auto) 1.0 % (3.0-13.0) L Eosinophils (%) (Auto) 2.6 % (0.0-8.0) Basophils (%) (Auto) 0.4 % (0.0-5.0) Neutrophils # (Auto) 5.3 K/uL (1.8-7.7) Lymphocytes # (Auto) 0.9 K/uL (1.0-4.8) L Monocytes # (Auto) 0.1 K/uL (0.1-1.0) Eosinophils # (Auto) 0.18 K/uL (0.00-0.70) Basophils # (Auto) 0.03 K/uL (0.00-0.20) Absolute Immature Granulocyte (auto 0.56 K/uL (0-1) Nucleated Red Blood Cells 0.9 % (0.0-0.19) H B-Type Natriuretic Peptide 98 pg/mL (0-100) Influenza Type A Antigen Negative For Type A Influenza Type B Antigen Negative For Type B SARS-CoV-2, RNA, NAAT NEGATIVE SARS CoV-2 Group A Streptococcus Rapid negative (NEGATIVE) Prothrombin Time 10.9 SEC (9.6-11.6) Prothromb Time International Ratio 1.03 (0.85-1.15) Activated Partial Thromboplast Time 24.0 SEC (26.3-35.5) L Test 02/08/25 00:17 02/08/25 00:20 02/08/25 00:47 Blood Gas Specimen Type Arterial Arterial Arterial Blood pH 7.474 (7.350-7.450) 7.469 (7.350-7.450) Arterial Blood Partial Pressure CO2 30 mmHg (35-48) L 28 mmHg (35-48) L Arterial Blood Partial Pressure O2 86.5 mmHg (83.0-108.0) 91.7 mmHg (83.0-108.0) Arterial Blood HCO3 21.3 mmol/L (21.0-28.0) 19.9 mmol/L (21.0-28.0) L Arterial Blood Oxygen Saturation 96.8 % (94.0-98.0) 97.5 % (94.0-98.0) Arterial Blood Base Excess -1.4 mmol/L (-2.0-3.0) -2.3 mmol/L (-2.0-3.0) L Hemoglobin (Blood Gas) 11.4 g/dL (13.5-17.5) L Sodium (Blood Gas) 132 MMOL/L (136-145) L Bedside Potassium (Blood Gas) 3.8 MMOL/L (3.4-4.5) Bedside Chloride (Blood Gas) 100 MMOL/L (98-107) Bedside Glucose (Blood Gas) 216 MG/DL (65-95) H Bedside Ionized Calcium (Blood Gas) 1.10 MMOL/L (1.15-1.33) L Bedside Lactic Acid (Blood Gas) 2.53 MMOL/L (0.36-0.75) H Blood Gas Temperature 37.0 CELSIUS (35.5-37.0) 37.0 CELSIUS (35.5-37.0) Blood Gas Flow-by 16.00 L/min (0.00-15.00) H 15.00 L/min (0.00-15.00) Blood Gas Vent Mode NRB RB (ROOM AIR) NRB MASK RB (ROOM AIR) FiO2 100.0 % 100.0 % Blood Gas Specimen Comment RYANNE PEARL,NURSE Urine Color LIGHT-YELLOW (YELLOW) Urine Appearance CLEAR (CLEAR) Urine pH 8.0 (5.0-8.0) Urine Specific Hubbard 1.011 (1.001-1.031) Urine Protein NEGATIVE mg/dL (NEGATIVE) Urine Glucose (UA) >=1000 mg/dL (NEGATIVE) H Urine Ketones NEGATIVE mg/dL (NEGATIVE) Urine Occult Blood MODERATE (NEGATIVE) H Urine Nitrate NEGATIVE (NEGATIVE) Urine Bilirubin NEGATIVE mg/dL (NEGATIVE) Urine Urobilinogen 0.2 mg/dL (0.2-1.0) Urine Leukocyte Esterase NEGATIVE Leeann/uL Urine RBC 11-25 /HPF (0-1) H Urine WBC 6-10 /HPF (0-1) H Urine Bacteria RARE /HPF (None Seen) Labs Reviewed?: Yes EKG/XRAY/US/CT/MRI EKG Comment 02/07/2025 time 11:06 p.m. Ventricular rate [address] wave elevation or depression X-RAY Comment Chest [id number] pulmonary infiltrates MDM MDM: Differential diagnosis: Respiratory distress, sepsis, shortness of breath, pneumonia, endotracheal intubation Rationale: Tests considered and ordered secondary to shared decision making include: labs, ECG and radiology Previous outside records reviewed: Old ER visits. Risk of complication and/or morbidity or mortality of patient management: None Medications-Per medication reconciliation Need for hospitalization: Patient does meet criteria for hospitalization. Need for emergency major/minor surgery: No There are no social concerns with this patient. Prescription drug management Prescriptions will include symptomatic care Patient's prior external medical records from other ER visits were reviewed by me as indicated. Prior testing and results from previous visits were reviewed. Prior tests were taken into account with medical decision making and resource utilization, independent historian/historians were used to obtain complete medical history. I independently interpreted the test that were performed, results were reviewed by me and considered findings on radiology if ordered. Medical management and examination interpretation discussions were had by me with other qualified healthcare professionals as indicated for the patient's care. Patient will be admitted under the care of [facility] for ongoing management. ED Course Orders Procedure Category Date Status Time Cbc With Differential LAB 02/07/25 Complete 22:45 Prothrombin Time With LAB 02/07/25 Complete INR 22:45 Partial LAB 02/07/25 Complete Thromboplastin Time 22:45 Blood Cult YUMIKO 02/07/25 In Process 22:45 Urinalysis Profile LAB 02/07/25 Complete 22:45 Culture Urine YUMIKO 02/07/25 In Process 22:45 Creatine Kinase, Total LAB 02/07/25 Complete 22:45 Troponin I High LAB 02/07/25 Complete Sensitivity 22:45 B-Type Natriuretic LAB 02/07/25 Complete Peptide 22:45 Lactic Acid LAB 02/07/25 Complete 22:45 Basic Metabolic Panel LAB 02/07/25 Complete 22:45 Chest 1vw RAD 02/07/25 Taken 22:45 Covid Rna Naat LAB 02/07/25 Complete 22:46 Influenza Type A & B, LAB 02/07/25 Complete Rapid 22:46 Rapid (Group A Strep) LAB 02/07/25 Complete 22:46 12 Lead Ekg Tracing- EKG 02/07/25 Logged Technical 23:10 Ipratropium/Albuterol PHA 02/08/25 Complete Neb (Duoneb) 00:00 Doxycycline 100mg+Ns PHA 02/08/25 In Process 250ml (Doxycycline 00:00 Arterial Blood Gas RT 02/08/25 Transmitted 00:07 Bipap Settings RT 02/08/25 Transmitted 00:09 Arterial Blood Gas LAB 02/08/25 Complete Arterial + 00:17 Arterial Blood Gas LAB 02/08/25 Complete 00:20 Diazepam 5 Mg/Ml 2 Ml PHA 02/08/25 Complete Syg (Valium 5 Mg/M 00:24 Acetaminophen 650mg PHA 02/08/25 Complete Supp (Tylenol 650mg 00:54 Norepinephrin 4mg/Ns PHA 02/08/25 Complete 250ml (Levophed 4mg 01:00 Ketamine 50mg/Ml PHA 02/08/25 Complete Syringe (Ketamine 01:04 Norepinephrin 4mg/Ns PHA 02/08/25 In Process 250ml (Levophed 4mg 01:30 Acetaminophen 650mg PHA 02/08/25 Complete Supp (Tylenol 650mg 01:30 Nurse Driven Mcgregor LUIZ 02/08/25 In Process Removal Pro 01:18 Acetaminophen 650mg PHA 02/08/25 Complete Supp (Tylenol 650mg 01:30 Ketamine 50mg/Ml PHA 02/08/25 Complete Syringe (Ketamine 01:30 Fentanyl 1000mcg+Ns PHA 02/08/25 In Process 100ml (Fentanyl 1000 01:30 Midazolam 100mg-0.9% PHA 02/08/25 Complete Ns 100ml (Midazolam 01:30 Chest 1vw RAD 02/08/25 Taken 01:26 Fentanyl 1000mcg+Ns PHA 02/08/25 Complete 100ml (Fentanyl 1000 01:21 Current Medications Medications (Trade) Dose Ordered Sig/Jose Angel Route PRN Reason Start Time Stop Time Status Last Admin Dose Admin Acetaminophen (TYLenol 650MG SUPPOSITORY) 650 mg ONCE ONCE RC 02/08/25 01:30 02/08/25 01:22 DC Acetaminophen (TYLenol 650MG SUPPOSITORY) 650 mg ONCE ONCE RC 02/08/25 01:30 02/08/25 01:31 Acetaminophen (TYLenol 650MG SUPPOSITORY) 650 mg STK-MED ONCE RC 02/08/25 00:54 02/08/25 00:55 DC Albuterol (DUOneb) 2 udvial ONCE ONCE IH 02/08/25 00:00 02/08/25 00:01 DC 02/07/25 23:46 Diazepam (VALium 5 MG/ML 2 ML SYG) 5 mg Q4H STAT IV 02/08/25 00:24 02/08/25 00:27 DC 02/08/25 00:36 Doxycycline Hyclate 250 ml @ 125 mls/hr Q12H IV 02/08/25 00:00 02/18/25 00:00 02/07/25 23:48 Fentanyl Citrate 100 ml @ 2.5 mls/hr PROTOCOL IV 02/08/25 01:30 02/15/25 01:29 Fentanyl Citrate 100 ml @ As Directed STK-MED ONCE IV 02/08/25 01:21 02/08/25 01:27 DC Ketamine HCl (ketaMINE 50MG/ ML SYRINGE) 50 mg STK-MED ONCE .ROUTE 02/08/25 01:04 02/08/25 01:04 DC Ketamine HCl (ketaMINE 50MG/ ML SYRINGE) 100 mg ONCE ONCE IV 02/08/25 01:30 02/08/25 01:31 Midazolam HCl (Midazolam 100mg-0.9% NS 100ml) 100 ml ONCE ONCE IV 02/08/25 01:30 02/08/25 01:31 Norepinephrine 250 ml @ As Directed STK-MED ONCE IV 02/08/25 01:00 02/08/25 01:00 DC Norepinephrine 250 ml @ 0 mls/hr PROTOCOL IV 02/08/25 01:30 03/10/25 01:29 Vital Signs Date Time Temp Pulse Resp B/P (MAP) Pulse Ox O2 Delivery O2 Flow Rate FiO2 02/08/25 00:58 101.5 123 60 93/46 Bi-PAP+ 65 02/08/25 00:31 142 60 119/58 Bi-PAP+ 65 02/08/25 00:20 133 60 65 02/08/25 00:17 136 60 101/45 96 Non-Rebreather+ 15 100 02/07/25 23:47 126 20 02/07/25 23:20 136 60 145/63 94 Non-Rebreather+ 15 100 02/07/25 22:45 97.5 156 48 186/103 82 Room Air* 0 21 02/07/25 22:37 98.6 132 38 141/75 82 Room Air Critical Care Note Comments Critical Care Procedure Note Authorized and Performed by: me Total critical care time: Approximately 36 minutes Due to a high probability of clinically significant, life threatening deterioration, the patient required my highest level of preparedness to intervene emergently and I personally spent this critical care time directly and personally managing the patient. This critical care time included obtaining a history; examining the patient; pulse oximetry; ordering and review of studies; arranging urgent treatment with development of a management plan; evaluation of patient's response to treatment; frequent reassessment; and, discussions with other providers. This critical care time was performed to assess and manage the high probability of imminent, life-threatening deterioration that could result in multi-organ failure. It was exclusive of separately billable procedures and treating other patients and teaching time. Please see MDM section and the rest of the note for further information on patient assessment and treatment. DX & DISP Disposition: Inpatient Decision to Admit Time: 01:34 Departure Impression: Primary Impression: Pneumonia Additional Impressions: Sepsis, Respiratory distress, Endotracheally intubated Condition: Stable Referrals: STEVENSON ROSADO MD (PCP) HENRI MELISSA MD February 08, 2025 01:02
[2025-02-08 01:03] LABS: BACTERIA,URINE RARE /HPF (None Seen)
[2025-02-08] MEDS: 0.9%NACL 1000ML 1,000 ML IV ONE (01:05)
[2025-02-08] MEDS: NOREPINEPHRIN 4MG/NS 250ML 250 ML IV SCH (01:05)
[2025-02-08] MEDS: NOREPINEPHRIN 4MG/NS 250ML 250 ML IV ONE (01:06)
[2025-02-08] MEDS: ketaMINE 50MG/ML SYRINGE 50 MG/ML DISP.SYRIN IV ONE (01:10)
[2025-02-08] MEDS: MIDAZOLAM 100MG-0.9% NS 100ML 100ML BAG IV ONE (01:30)
[2025-02-08] MEDS ORDERED: acetaMINOPHEN 650 MG SUPPOSITORY RC ONE (01:30)
--- NOTE | 2025-02-08 01:34 | NUR ---
[facility]
--- NOTE | 2025-02-08 01:40 | HP ---
[facility] HISTORY & PHYSICAL Date Patient Seen: February 08, 2025 Time of Visit: 01:20 Supervising Physician: [Dr. Francois Laguna ] Primary Care Physician: [Dr. 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 Per ED notes: "Patient is a an 80-year-old male coming in to be evaluated for nausea and vomiting and shortness of breath. Per son patient has been having this since the last feet. Patient was recently discharged for similar presentation one week ago. Patient has a PEG tube in place." Patient was just discharged the day before the unfortunate event of respiratory distress caused by suspected aspiration and vomiting post-tube feeding. The son claims that the patient still was complaining of a "bad cough" before going home. Patient was unable to protect his airway leading to intubation. Vitals was suboptimal and BP was low warranting Levophed. Lung sounds are diminished. He was a code sepsis upon arrival in ED. PAST MEDICAL HX: see above PAST SURGICAL HX: noncontributory SOCIAL HISTORY: No tobacco, ETOH, or illicit drug use Coded Allergies: No Known Allergies (Verified Allergy, Unknown, 04/02/20) Penicillins (Unverified Allergy, Unknown, 02/07/25) REVIEW OF SYSTEMS: Unable to [id number] point ROS due to being intubated and sedated. PHYSICAL EXAM: GENERAL: Intubated, sedated HEENT: EOMI, Sclera non icteric, dry mucosa NECK: Supple, no JVD, trachea midline LUNGS: Diminished breath sounds bilaterally. No wheezes, rhonchi or crackles HEART: Regular rate and rhythm. Normal S1 and S2, without murmurs, tachy ABD: Abdomen soft, nontender. Bowel sounds present, PEG tube in situ EXT: No clubbing cyanosis or edema, left leg erythema with ecchymosis-> no edema NEURO: sedated Vital Signs (last 8hr) Date Time Temp Pulse Resp B/P (MAP) Pulse Ox O2 Delivery O2 Flow Rate FiO2 02/08/25 00:58 101.5 123 60 93/46 Bi-PAP+ 65 02/08/25 00:31 142 60 119/58 Bi-PAP+ 65 02/08/25 00:20 133 60 65 02/08/25 00:17 136 60 101/45 96 Non-Rebreather+ 15 100 02/07/25 23:47 126 20 02/07/25 23:20 136 60 145/63 94 Non-Rebreather+ 15 100 02/07/25 22:45 97.5 156 48 186/103 82 Room Air* 0 21 02/07/25 22:37 98.6 132 38 141/75 82 Room Air LABS: Hematology Labs: Test 02/07/25 22:45 Range/Units White Blood Count 7.0 4.8-10.8 K/uL Red Blood Count 4.31 L 4.50-6.20 MIL/uL Hemoglobin 12.0 #L 14.0-18.0 g/dL Hematocrit 37.8 #L 42-54 % Mean Corpuscular Volume 87.7 79-99 fL Mean Corpuscular Hemoglobin 27.8 27.0-33.0 pg Mean Corpuscular Hemoglobin Concent 31.7 L 32.0-36.0 g/dL Red Cell Distribution Width 14.6 11.0-15.5 % Platelet Count 305 130-400 K/uL Mean Platelet Volume 10.3 7.5-10.5 fL Immature Granulocyte % (Auto) 8.0 H 0-1 % Neutrophils (%) (Auto) 75.6 40.0-77.0 % Lymphocytes (%) (Auto) 12.4 L 21.0-51.0 % Monocytes (%) (Auto) 1.0 L 3.0-13.0 % Eosinophils (%) (Auto) 2.6 0.0-8.0 % Basophils (%) (Auto) 0.4 0.0-5.0 % Neutrophils # (Auto) 5.3 1.8-7.7 K/uL Lymphocytes # (Auto) 0.9 L 1.0-4.8 K/uL Monocytes # (Auto) 0.1 0.1-1.0 K/uL Eosinophils # (Auto) 0.18 0.00-0.70 K/uL Basophils # (Auto) 0.03 0.00-0.20 K/uL Absolute Immature Granulocyte (auto 0.56 0-1 K/uL Nucleated Red Blood Cells 0.9 H 0.0-0.19 % Chemistry Labs: Test 02/07/25 22:45 02/07/25 22:30 Range/Units B-Type Natriuretic Peptide 98 0-100 pg/mL Sodium Level 136 136-145 mmol/L Potassium Level 5.1 3.5-5.1 mmol/L Chloride Level 99 L 101-111 mmol/L Carbon Dioxide Level 25 21-32 mmol/L Blood Urea Nitrogen 15 7-18 mg/dL Creatinine 0.8 0.5-1.3 mg/dL Glomerular Filtration Rate Calc 89 >90 mL/min Random Glucose 202 H 70-105 mg/dL Lactic Acid Level 4.5 H 0.8-2.5 mmol/L Total Calcium 9.0 8.5-10.1 mg/dL Total Creatine Kinase 135 # 21-232 U/L Troponin I High Sensitivity 5 4-75 ng/L Coagulation Labs: Test 02/07/25 23:28 Range/Units Prothrombin Time 10.9 9.6-11.6 SEC Prothromb Time International Ratio 1.03 0.85-1.15 Activated Partial Thromboplast Time 24.0 L 26.3-35.5 SEC DIAGNOSTICS / RADIOLOGY RESULTS: [ ] PLAN NEURO: Minimize central acting medications as possible. Maintain fall precautions, adequate lighting during the day PULMONARY: Supplemental 02 as needed. Maintain aspiration precautions at all times CARDIOVASCULAR: Follow hemodynamics. Vital signs per facility protocol GI & NUTRITION: Continue with nutritional support. Continue stool softeners and laxatives as needed. KIDNEYS & ELECTROLYTES: Strict monitoring of intake, output and overall fluid balance. Avoid nephrotoxic medications to the extent possible. Medications to be dosed according to renal function. Monitor electrolytes and replace as needed ENDOCRINE: Maintain blood glucose between 100-180 at all times. Hypoglycemia protocol in place INFECTIOUS DISEASE: Trend temperature, WBC and procalcitonin level Follow cultures, deescalate antibiotics as soon as possible. Panculture if new onset fever ONCOLOGY/HEMATOLOGY/COAGULATION: Monitor for s/s of bleeding Monitor hemoglobin, coagulation studies as needed SKIN: Pressure ulcer prevention per facility protocol Specialty mattress ORTHO/REHAB: Continue PT/OT Prophylaxis: Continue GI and DVT prophylaxis Code Status: Full Resuscitation Disposition: TBD Other: Total patient care time: 35 minutes TOM BOOKER February 08, 2025 01:40
[2025-02-08] MEDS: FENTanyl 1000MCG+NS 100ML 100 ML IV SCH (01:54)
[2025-02-08] MEDS: FENTanyl 1000MCG+NS 100ML 100 ML IV ONE (01:55)
[2025-02-08] MEDS: proPOFol 1000 MG/100 ML IV PRN (01:55)
[2025-02-08] MEDS: proPOFol 1000 MG/100 ML 100 ML IV ONE (01:56)
[2025-02-08] MEDS ORDERED: acetaMINOPHEN 325 MG TAB PO PRN (02:00)
[2025-02-08] MEDS ORDERED: ALBUTEROL 0.083% 2.5 MG/3 ML INH IH PRN (02:00)
[2025-02-08] MEDS ORDERED: ondanSETRON 4MG INJ IVP PRN (02:00)
[2025-02-08] MEDS ORDERED: proPOFol 1000 MG/100 ML IV PRN (02:00)
[2025-02-08] MEDS ORDERED: VANCOMYCIN PROTOCOL PER PHARMACY IV SCH (02:00)
[2025-02-08] MEDS ORDERED: phenylEPHRINE HCL 100 MG in 0.9% NACL 250ML 250 ML IV PRN (02:00)
--- NOTE | 2025-02-08 02:04 | EKG ---
[facility] Test Date: 2025-02-08 Test Time: 02:00:55 Pat Name: ELIAS ROMAN Department: [facility]IP Room: 212 Gender: M Technician Helper Instrument: [id number] : 1945 Requested By: HENRI MELISSA Order Number: [id number] Reading MD: Khari Mitchell Measurements Intervals [place] Rate: 114 P: 69 IA: 205 QRS: 36 QRSD: 78 T: 266 QT: 318 QTc: 438 Interpretive Statements Sinus tachycardia Compared to ECG 12/24/2024 18:41:45 Sinus rhythm no longer present Atrial premature complex(es) no longer present Electronically Signed On 02-09-2025 17:30:28 CDT by Khari Mitchell Please click the below link to view image of tracing.
[2025-02-08] MEDS: IpraTROPium/alBUTERol SULFATE 3 ML SOLUTION IH SCH (02:11)
[2025-02-08] MEDS: Solu-medROL 40MG VIAL IVP ONE (02:14)
[2025-02-08] MEDS: ceFEPime HCL 2 GM VIAL IVPB SCH (02:14)
[2025-02-08] MEDS: VANCOMYCIN 1.75 GM/250 ML BAG 250 ML IV ONE (02:17)
[2025-02-08] MEDS: ketaMINE 50MG/ML SYRINGE 50 MG/ML DISP.SYRIN ONE (02:42)
[2025-02-08 02:49] LABS: ABG BASE EXCESS -5.6 mmol/L (-2.0-3.0); ABG HCO3 21.6 mmol/L (21.0-28.0); ABG OXYGEN SATURATION 95.9 % (94.0-98.0); ABG PCO2 49 mmHg (35-48); ABG PH 7.267 (7.350-7.450); VENT MODE, BG ACVC (ROOM AIR)
[2025-02-08 04:01] LABS: BASOPHILS # (AUTO) 0.03 K/uL (0.00-0.20); BASOPHILS % (AUTO) 0.2 % (0.0-5.0); EOSINOPHILS # (AUTO) 0.03 K/uL (0.00-0.70); EOSINOPHILS % (AUTO) 0.2 % (0.0-8.0); HEMATOCRIT 30.8 % (42-54); IMMATURE GRANULOCYTE ABSOLUTE 0.09 K/uL (0-1); LYMPHOCYTES # (AUTO) 0.4 K/uL (1.0-4.8); MEAN CORPUSCULAR HGB CONC 32.5 g/dL (32.0-36.0); MEAN CORPUSCULAR VOLUME 86.3 fL (79-99); MONOCYTES # (AUTO) 0.5 K/uL (0.1-1.0); NEUTROPHILS # (AUTO) 16.4 K/uL (1.8-7.7); NEUTROPHILS % (AUTO) 94.1 % (40.0-77.0); NUCLEATED RED BLOOD CELLS 0.1 % (0.0-0.19); PLATELET COUNT (AUTO) 343 K/uL (130-400); RED BLOOD CELL COUNT(AUTO) 3.57 MIL/uL (4.50-6.20); RED CELL DISTRIBUTION WIDTH 14.6 % (11.0-15.5); WHITE BLOOD COUNT (AUTO) 17.4 K/uL (4.8-10.8)
--- NOTE | 2025-02-08 04:08 | NUR ---
REPORT GIVEN TO EMBER RN
[2025-02-08 04:11] LABS: CREATININE 0.8 mg/dL (0.5-1.3); MAGNESIUM 1.7 mg/dL (1.80-2.40); POTASSIUM 3.2 mmol/L (3.5-5.1)
[2025-02-08 04:16] LABS: INR 1.12 (0.85-1.15); PROTHROMBIN TIME 11.7 SEC (9.6-11.6)
[2025-02-08] MEDS: MAGNESIUM 2GM PREMIX 50ML 50 ML IV ONE (05:21)
[2025-02-08] MEDS: MAGNESIUM 2GM PREMIX 50ML 50 ML IV PRN (06:29)
[2025-02-08] MEDS ORDERED: PoTASSium chloRIDE 10MEQ/100ML 100 ML IV PRN (06:30)
[2025-02-08] MEDS ORDERED: AMOX1TAB16 PO (08:38)
[2025-02-08] MEDS: PANTOPrazole 40 MG/VIAL IVP SCH (09:11)
[2025-02-08] MEDS: Solu-medROL 40MG VIAL IVP SCH (09:11)
--- NOTE | 2025-02-08 09:28 | HMCIMG ---
Exam Type: CHEST 1VW Clinical Information: POST INTUBATION Comparison: None Findings: Endotracheal tube is noted with tip approximately 5.2 cm from elizabeth and no interval changes are seen otherwise. IMPRESSION: Endotracheal tube tip as noted.
--- NOTE | 2025-02-08 09:32 | PN ---
[facility] PROGRESS NOTE Date Patient Seen: February 08, 2025 Time of Visit: 09:31 Supervising Physician: Giovanny Rivas MD Primary Care Physician: [Dr. 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 Currently on propofol at 50 mcg/kg/min, fentanyl at 200mcg/hr, and on pressors with levophed weaning at 0.2 mcg/kg/min, Ventilator settings with ACVC adjusted this morning to TV 450/RR 16/fio2 at 45% and peep of 5. Per family they are confused as to previous discharge 3 days ago. Son was undee the understanding pt was going to start hospice at home. When hospice office was called there was no set up in place. Plans request per pt's family is that possibly [facility] medical management get pt off the ventilator when ready and hope to take pt on hospice home with hospice arranged prior to discharge. This was discussed with Peter regional service manager and fam. Family requesting [facility]. For now we will start sedation vacation and SBT's . He didnt do well on CPAP today due to tavhypnea so we will attempt SBTs again in am. WBCs white count is 17.4 H&H is 10/30.8 creatinine is normal 0.8 with a GFR over 89. COVID and flu are negative. Strep throat is negative. Chest x-ray with bilateral pneumonia. ET tube at 5.2 cm in the elizabeth ordered and coordinated with the RT to person 1 cm. REVIEW OF SYSTEMS: unable to perform due to pt intubated. PHYSICAL EXAM: GENERAL: Intubated, sedated HEENT: EOMI, Sclera non icteric, dry mucosa NECK: Supple, no JVD, trachea midline LUNGS: Diminished breath sounds bilaterally. No wheezes, rhonchi or crackles HEART: Regular rate and rhythm. Normal S1 and S2, without murmurs, tachy ABD: Abdomen soft, nontender. Bowel sounds present, PEG tube in situ EXT: No clubbing cyanosis or edema, left leg erythema with ecchymosis-> no edema NEURO: sedated Vital Signs (last 8hr) Date Time Temp Pulse Resp B/P (MAP) Pulse Ox O2 Delivery O2 Flow Rate FiO2 02/08/25 08:28 98.2 02/08/25 07:58 70 14 125/63 (83) 99 02/08/25 07:43 72 15 129/67 (87) 99 02/08/25 07:28 75 19 125/66 (85) 99 02/08/25 07:13 98.2 76 19 127/66 (86) 99 02/08/25 06:58 77 18 124/62 (82) 99 45 02/08/25 06:43 72 16 123/61 (81) 100 45 02/08/25 06:35 76 19 02/08/25 06:32 76 45 02/08/25 06:28 75 16 123/69 (87) 100 45 02/08/25 06:13 75 15 127/67 (87) 99 45 02/08/25 05:58 77 15 125/65 (85) 99 45 02/08/25 05:44 80 17 116/70 (85) 99 45 02/08/25 05:28 81 16 71/43 (52) 97 45 02/08/25 05:27 114/58 02/08/25 05:13 81 17 135/69 (91) 98 45 02/08/25 05:00 99 Ventilator+ 45 02/08/25 05:00 45 02/08/25 04:58 82 16 129/67 (87) 98 45 02/08/25 04:45 87 45 02/08/25 04:43 85 17 114/60 (78) 98 45 02/08/25 04:30 98.2 87 17 97 45 02/08/25 04:10 98.2 92 16 114/58 97 Ventilator+ 45 02/08/25 03:39 96 16 101/56 97 Ventilator+ 45 02/08/25 02:50 110 45 02/08/25 02:27 98.1 110 14 106/55 96 Ventilator+ 50 02/08/25 02:11 111 14 02/08/25 01:54 118 16 127/57 97 Ventilator+ 50 LABS: Hematology Labs: Test 02/08/25 03:54 Range/Units White Blood Count 17.4 #H 4.8-10.8 K/uL Red Blood Count 3.57 L 4.50-6.20 MIL/uL Hemoglobin 10.0 L 14.0-18.0 g/dL Hematocrit 30.8 L 42-54 % Mean Corpuscular Volume 86.3 79-99 fL Mean Corpuscular Hemoglobin 28.0 27.0-33.0 pg Mean Corpuscular Hemoglobin Concent 32.5 32.0-36.0 g/dL Red Cell Distribution Width 14.6 11.0-15.5 % Platelet Count 343 130-400 K/uL Mean Platelet Volume 8.7 7.5-10.5 fL Immature Granulocyte % (Auto) 0.5 0-1 % Neutrophils (%) (Auto) 94.1 H 40.0-77.0 % Lymphocytes (%) (Auto) 2.0 L 21.0-51.0 % Monocytes (%) (Auto) 3.0 3.0-13.0 % Eosinophils (%) (Auto) 0.2 0.0-8.0 % Basophils (%) (Auto) 0.2 0.0-5.0 % Neutrophils # (Auto) 16.4 H 1.8-7.7 K/uL Lymphocytes # (Auto) 0.4 L 1.0-4.8 K/uL Monocytes # (Auto) 0.5 0.1-1.0 K/uL Eosinophils # (Auto) 0.03 0.00-0.70 K/uL Basophils # (Auto) 0.03 0.00-0.20 K/uL Absolute Immature Granulocyte (auto 0.09 0-1 K/uL Nucleated Red Blood Cells 0.1 0.0-0.19 % Chemistry Labs: Test 02/08/25 03:54 02/07/25 22:45 02/07/25 22:30 Range/Units Sodium Level 139 136-145 mmol/L Potassium Level 3.2 L 3.5-5.1 mmol/L Chloride Level 106 101-111 mmol/L Carbon Dioxide Level 23 21-32 mmol/L Blood Urea Nitrogen 16 7-18 mg/dL Creatinine 0.8 0.5-1.3 mg/dL Glomerular Filtration Rate Calc 89 >90 mL/min Random Glucose 211 H 70-105 mg/dL Lactic Acid Level 1.9 0.8-2.5 mmol/L Total Calcium 6.9 L 8.5-10.1 mg/dL Magnesium Level 1.70 L 1.80-2.40 mg/dL B-Type Natriuretic Peptide 98 0-100 pg/mL Total Creatine Kinase 135 # 21-232 U/L Troponin I High Sensitivity 5 4-75 ng/L Coagulation Labs: Test 02/08/25 03:54 02/07/25 23:28 Range/Units Prothrombin Time 11.7 H 9.6-11.6 SEC Prothromb Time International Ratio 1.12 0.85-1.15 Activated Partial Thromboplast Time 24.0 L 26.3-35.5 SEC DIAGNOSTICS / RADIOLOGY RESULTS: [ IMAGING REPORT Signed PATIENT: ELIAS ROMAN MR#: [id number] : 1945 SEX: M AGE: 80 LOCATION: 2CV ORDER 5 STATUS: ADM IN REPORT#: [id number] SERVICE 5 REASON: POST INTUBATION ORDERING PHYSICIAN: HENRI MELISSA MD PROCEDURE: CXR1VW - CHEST 1VW Exam Type: CHEST 1VW Clinical Information: POST INTUBATION Comparison: None Findings: Endotracheal tube is noted with tip approximately 5.2 cm from elizabeth and no interval changes are seen otherwise. IMPRESSION: Endotracheal tube tip as noted. DICTATED BY: ANGELA LAZO MD DATE: 02/08/25924 ELECTRONICALLY SIGNED BY: ANGELA LAZO MD DATE: 02/08/25927 ] PLAN -continue ICU Care -Titrate oxygen to keep sats >92% -Daily SBT as tolerated -Sedation vacation q am as tolerated: Currently on Propofol and Fentanyl drips switch to Precedex -+ for mycoplasma, stop vanco, start doxy and continue cefepime. -Pending blood CX -Obtain pneumo studies -Start on IV Solumedrol therapy and wean as possible -Maintain hemodynamic stability to keep MAP >65: Current pressor Levophed, add Neosynephrine if HR continues to be tachy NEURO: Minimize central acting medications as possible. Fall Precautions. Well lighted room through the day and minimize interruptions through the night to prevent acute delirium. PULMONARY: Supplemental 02 as needed Titrate Fio2 to keep Spo2 > or = 90% DuoNebs and CPT as needed IS hourly while awake for pulmonary hygiene Out of bed to chair as tolerated VAP Bundle Vent/BIPAP Settings: [ acvc 450/16/45%/5] Driving pressure: [ goal < 30] CARDIOVASCULAR: Follow hemodynamics. Titrate vasopressor to keep MAP >65 or systolic blood pressure >95mmHg DRIPS: precedex levophed LINES: [piv if unable to wean levophed conside picc line ] GI & NUTRITION: Continue nutritional support Aspirations precautions Prokinetic agents and laxatives as needed KIDNEYS & ELECTROLYTES: Strict monitoring of intake and output Daily weights Avoid nephrotoxic agents Monitor electrolytes and replace as needed Goal urine output of 30mL/hr or 0.5mL/kg/hr Urine output: [ ] Fluid Balance: [ ] ENDOCRINE: Maintain blood glucose between 100-180 at all times. Insulin sliding scale for blood glucose management INFECTIOUS DISEASE: Trend temperature. Mora-culture if febrile. Micro: [ ] + for mycoplasma Antibiotics: [ Cefepime and doxy] HEMATOLOGY & COAGULATION: Monitor H&H. Keep Hgb > 7 Transfuse 1 unit of PRBC for Hgb < 7 Transfuse 1 pack of platelets of platelets < 20, 000 Watch for any signs and symptoms of bleeding SKIN: Pressure ulcer prevention per facility protocol Rehab: PT/OT Prophylaxis: GI: [ protonix] DVT: loveno ] Code Status: Full Resuscitation Disposition: [ icu] Other: Total patient care time exceeds 35 minutes excluding all procedures. Case was discussed and seen with my supervising physician. The above plan was formulated and agreed upon. ATTESTATION BY PHYSICIAN The patient has been seen and evaluated, the case has been discussed with the ANNEALING FURNACE TENDER, I agree with the clinical findings and plan of care. Goivanny Rivas MD, NELLY J ARNP February 08, 2025 09:32
--- NOTE | 2025-02-08 09:37 | HMCIMG ---
Exam Type: CHEST 1VW Clinical Information: fever Comparison: None Findings: Ill-defined infiltrates of the left lower lobe are seen consistent with pneumonia. . The heart is normal in size. The bony and soft tissue structures show no worrisome pathology. IMPRESSION: Findings consistent with pneumonia. Follow-up is advised.
--- NOTE | 2025-02-08 09:45 | NUR ---
MET W SON AT BEDSIDE IN CVR FOR DC PLANNING. PATIENT CURRENTLY INTUBATED, SEDATED AND ON PRESSORS. SON STATES BROUGHT HIS FATHER HOME FOR THIS HOSPITAL ON SATURDAY- WAS WAITING FOR EQUIPMENT TO MORE EASILY CAER FOR HIM. WAS IN TOUCH WITH [facility] AND THEY HAD DONE AN IN HOME VISIT BUT EQUIPMENT HAD NOT YET BEEN DELIVERED AND SERVICES HAD NOT YET BEEN INITIATED. PATIENT CHOCKED ON SOME FOOD , WAS UNABLE TO CATCH HIS BREATH, SON CALLED 911, AND PATIENT WAS BROUGHT TO THE HOSPITAL WITH RESUSCITATIVE MEASURES / INTUBATION SON STATES HIS GOAL WAS TO HAVE HIS FATHER AT HOME AND NOT TO HAVE HIM STAY ANYWHERE BUT HOME FROM NOW ON. STATES HIS GOAL IS TO HAVE MD'S SAFELY EXTUBATE AND STABILIZE HIS FATHER SO HE CAN GO HOME WITH HOSPICE ON BOARD AND AL EQUIPMENT IN PLACE SO HE DOES NOT HAVE TO EVER BRING HIS FATHER BACK. 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 EXPLAINED PLAN OF CARE . PASSED SONS WISHES FOR THIS HOSPITALIZATION ON TO [facility]. 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 ADVISED ELYSE ELLIS VIA PHONE Addendum: 02/08/25 at 1223 by CAROLINA VALDES RN Amended: Links added.
[2025-02-08] MEDS: PoTASSium chl 10% ELIXIR 20MEQ 20 MEQ/15 ML UDCUP PO PRN (10:03)
[2025-02-08] MEDS: metRONIDazole 500MG/100ML BAG 100 ML IVPB SCH (10:04)
[2025-02-08] MEDS: miDODRine HCL 5 MG TABLET PO SCH ×2 (12:19→20:04)
--- NOTE | 2025-02-08 13:53 | EKG ---
[facility] Test Date: 2025-02-07 Test Time: 23:06:15 Pat Name: ELIAS ROMAN Department: 2CV Room: 212 1 Gender: M Tie Bucker: 1081 : 1945 Requested By: HENRI MELISSA Order Number: [id number] Reading MD: Khari Mitchell Measurements Intervals [place] Rate: 144 P: 28 NE: 157 QRS: 53 QRSD: 77 T: 55 QT: 352 QTc: 546 Interpretive Statements Sinus tachycardia Paired ventricular premature complexes Compared to ECG 12/24/2024 18:41:45 Ventricular premature complex(es) now present Sinus rhythm no longer present Atrial premature complex(es) no longer present Electronically Signed On 02-09-2025 17:30:25 CDT by Khari Mitchell Please click the below link to view image of tracing.
[2025-02-08] MEDS: VANCOMYCIN 750MG VIAL IVPB SCH (13:54)
[2025-02-08] MEDS: DOXYCYCLINE 100MG+NS 250ML 250 ML IV SCH (17:21)
[2025-02-08 17:46] LABS: MAGNESIUM 2.8 mg/dL (1.80-2.40); POTASSIUM 5.4 mmol/L (3.5-5.1)
[2025-02-08] MEDS: dexmedeTOMIDine 400MCG/NS100ML IV SCH (17:47)
[2025-02-08] MEDS: INSULIN humuLIN R 100 UNIT/ML 3ML SQ SCH (18:11)
[2025-02-08] MEDS: CHLORHEXIDINE GLUCONATE 15 ML MOUTHWASH MM SCH (20:07)
[2025-02-08] MEDS: ARTIFICAL TEARS SOL 15 ML OU SCH (20:07)
[2025-02-08] MEDS: NYSTatin 15 GM POWDER TP SCH (22:45)
[2025-02-09] VITALS (52 sets, daily range): BP systolic 124–151; BP diastolic 51–77; PULSE 57–86; RESP 16–32; TEMP 97.6–99; O2SAT 97–100
[2025-02-09 05:21] LABS: ALBUMIN 1.8 g/dL (3.5-5.0); BILIRUBIN,TOTAL 0.3 mg/dL (0.2-1.0); CREATININE 0.7 mg/dL (0.5-1.3); MAGNESIUM 2.5 mg/dL (1.80-2.40); POTASSIUM 4.6 mmol/L (3.5-5.1); THYROID STIMULATING HORMONE 0.47 uIU/mL (0.36-3.74); TOTAL PROTEIN, SERUM 6.3 g/dL (6.0-8.3)
[2025-02-09 05:46] LABS: BASOPHILS # (AUTO) 0.02 K/uL (0.00-0.20); BASOPHILS % (AUTO) 0.2 % (0.0-5.0); HEMATOCRIT 31.4 % (42-54); IMMATURE GRANULOCYTE ABSOLUTE 0.07 K/uL (0-1); LYMPHOCYTES # (AUTO) 0.3 K/uL (1.0-4.8); LYMPHOCYTES % (AUTO) 2.4 % (21.0-51.0); MEAN CORPUSCULAR HEMOGLOBIN 27.1 pg (27.0-33.0); MEAN CORPUSCULAR HGB CONC 31.2 g/dL (32.0-36.0); MONOCYTES # (AUTO) 0.3 K/uL (0.1-1.0); MONOCYTES % (AUTO) 2.6 % (3.0-13.0); NEUTROPHILS # (AUTO) 12.3 K/uL (1.8-7.7); NEUTROPHILS % (AUTO) 94.3 % (40.0-77.0); PLATELET COUNT (AUTO) 268 K/uL (130-400); RED BLOOD CELL COUNT(AUTO) 3.61 MIL/uL (4.50-6.20); RED CELL DISTRIBUTION WIDTH 14.7 % (11.0-15.5); WHITE BLOOD COUNT (AUTO) 13.1 K/uL (4.8-10.8)
[2025-02-09 06:02] LABS: HEMOGLOBIN A1C 6.2 % (4.0-6.0)
[2025-02-09 06:19] LABS: B-TYPE NATRIURETIC PEPTIDE 731 pg/mL (0-100)
--- NOTE | 2025-02-09 09:41 | HMCIMG ---
Exam Type: CHEST 1VW Clinical Information: INTUBATED Comparison: None Findings: Endotracheal tube is noted with tip approximately 2 cm from elizabeth and no interval changes are seen otherwise. IMPRESSION: Endotracheal tube tip as noted.
[2025-02-09 09:57] LABS: ABG BASE EXCESS 2.3 mmol/L (-2.0-3.0); ABG HCO3 26.5 mmol/L (21.0-28.0); ABG OXYGEN SATURATION 90.6 % (94.0-98.0); ABG PCO2 40 mmHg (35-48); CPAP, BG 5 cm H2O; DEVICE COMMENT RN LAUREN LR; PO2, ARTERIAL BG 56.7 mmHg (83.0-108.0); VENT MODE, BG CPAP 5,5 (ROOM AIR)
--- NOTE | 2025-02-09 10:34 | NUR ---
CPAP TRIALS DONE- PT IS CALM/COOPERATIVE. ABG LOW PO2. PLACED BACK ON AC SETTINGS
--- NOTE | 2025-02-09 12:38 | PN ---
[facility] PROGRESS NOTE Date Patient Seen: February 09, 2025 Time of Visit: 12:38 Supervising Physician: Dr. Hunter Primary Care Physician: [Dr. 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 Currently on propofol at 50 mcg/kg/min, fentanyl at 200mcg/hr, and on pressors with levophed weaning at 0.2 mcg/kg/min, Ventilator settings with ACVC adjusted this morning to TV 450/RR 16/fio2 at 45% and peep of 5. Per family they are confused as to previous discharge 3 days ago. Son was undee the understanding pt was going to start hospice at home. When hospice office was called there was no set up in place. Plans request per pt's family is that possibly optimize medical management get pt off the ventilator when ready and hope to take pt on hospice home with hospice arranged prior to discharge. This was discussed with Peter a p manager and fam. Family requesting [place] [facility]. For now we will start sedation vacation and SBT's . He didnt do well on CPAP today due to tavhypnea so we will attempt SBTs again in am. WBCs white count is 17.4 H&H is 10/30.8 creatinine is normal 0.8 with a GFR over 89. COVID and flu are negative. Strep throat is negative. Chest x-ray with bilateral pneumonia. ET tube at 5.2 cm in the elizabeth ordered and coordinated with the RT to person 1 cm. 02/09/2025: At the time of my evaluation, the patient was lying in bed. He remains intubated and mechanically vented. ABG today showed low PO2 of 56.7 with normal pH and pCO2. On monitor the patient showed no events, no tachycardia or tachypnea. Blood pressure was within normal ranges. Laboratory data today showed improved WBC count 13 .1. No severe anemia or thrombocytopenia. Chemistry panel was unremarkable. Microbiology data so far negative. Chest x-ray today showed presence of a endotracheal tube approximately the tip is 2 cm above the elizabeth. There were diffuse pulmonary vascular congestion and bilateral pneumonic infiltrates. No new complaint. REVIEW OF SYSTEMS: unable to perform due to pt intubated. PHYSICAL EXAM: GENERAL: Intubated, sedated HEENT: EOMI, Sclera non icteric, dry mucosa NECK: Supple, no JVD, trachea midline LUNGS: Diminished breath sounds bilaterally. No wheezes, rhonchi or crackles HEART: Regular rate and rhythm. Normal S1 and S2, without murmurs, tachy ABD: Abdomen soft, nontender. Bowel sounds present, PEG tube in situ EXT: No clubbing cyanosis or edema, left leg erythema with ecchymosis-> no edema NEURO: Sedated Vital Signs (last 8hr) Date Time Temp Pulse Resp B/P (MAP) Pulse Ox O2 Delivery O2 Flow Rate FiO2 02/09/25 10:35 66 30 02/09/25 10:33 30 02/09/25 10:01 59 19 02/09/25 08:50 30 02/09/25 08:47 86 30 02/09/25 08:00 97.5 63 18 144/64 (90) 100 02/09/25 08:00 30 02/09/25 08:00 100 Ventilator+ 30 02/09/25 07:15 69 18 147/69 (95) 100 02/09/25 06:49 63 19 02/09/25 06:47 62 30 02/09/25 05:13 62 19 145/66 (92) 100 02/09/25 04:43 73 18 149/76 (100) 100 LABS: Hematology Labs: Test 02/09/25 05:28 Range/Units White Blood Count 13.1 H 4.8-10.8 K/uL Red Blood Count 3.61 L 4.50-6.20 MIL/uL Hemoglobin 9.8 L 14.0-18.0 g/dL Hematocrit 31.4 L 42-54 % Mean Corpuscular Volume 87.0 79-99 fL Mean Corpuscular Hemoglobin 27.1 27.0-33.0 pg Mean Corpuscular Hemoglobin Concent 31.2 L 32.0-36.0 g/dL Red Cell Distribution Width 14.7 11.0-15.5 % Platelet Count 268 130-400 K/uL Mean Platelet Volume 9.0 7.5-10.5 fL Immature Granulocyte % (Auto) 0.5 0-1 % Neutrophils (%) (Auto) 94.3 H 40.0-77.0 % Lymphocytes (%) (Auto) 2.4 L 21.0-51.0 % Monocytes (%) (Auto) 2.6 L 3.0-13.0 % Eosinophils (%) (Auto) 0.0 0.0-8.0 % Basophils (%) (Auto) 0.2 0.0-5.0 % Neutrophils # (Auto) 12.3 H 1.8-7.7 K/uL Lymphocytes # (Auto) 0.3 L 1.0-4.8 K/uL Monocytes # (Auto) 0.3 0.1-1.0 K/uL Eosinophils # (Auto) 0.00 0.00-0.70 K/uL Basophils # (Auto) 0.02 0.00-0.20 K/uL Absolute Immature Granulocyte (auto 0.07 0-1 K/uL Nucleated Red Blood Cells 0.0 0.0-0.19 % White Cell Morphology Comment See comments Chemistry Labs: Test 02/09/25 11:27 02/09/25 05:28 02/09/25 04:01 02/07/25 22:30 Range/Units Whole Blood Glucose 218 H 70-110 MG/DL Hemoglobin A1c 6.2 H 4.0-6.0 % Estimated Average Glucose (eAG) 131 H 70-126 mg/dL B-Type Natriuretic Peptide 731 H 0-100 pg/mL Sodium Level 143 136-145 mmol/L Potassium Level 4.6 3.5-5.1 mmol/L Chloride Level 110 101-111 mmol/L Carbon Dioxide Level 25 21-32 mmol/L Blood Urea Nitrogen 17 7-18 mg/dL Creatinine 0.7 0.5-1.3 mg/dL Glomerular Filtration Rate Calc 93 >90 mL/min Random Glucose 230 H 70-105 mg/dL Lactic Acid Level 1.4 0.8-2.5 mmol/L Total Calcium 8.4 L 8.5-10.1 mg/dL Phosphorus Level 3.0 2.5-4.9 mg/dL Magnesium Level 2.50 H 1.80-2.40 mg/dL Total Bilirubin 0.3 0.2-1.0 mg/dL Aspartate Amino Transf (AST/SGOT) 19 10-37 U/L Alanine Aminotransferase (ALT/SGPT) 15 12-78 U/L Alkaline Phosphatase 107 50-136 U/L Total Protein 6.3 6.0-8.3 g/dL Albumin 1.8 L 3.5-5.0 g/dL Procalcitonin 7.08 H 0.05-0.5 ng/mL Thyroid Stimulating Hormone (TSH) 0.47 # 0.36-3.74 uIU/mL Total Creatine Kinase 135 # 21-232 U/L Troponin I High Sensitivity 5 4-75 ng/L Coagulation Labs: Test 02/08/25 03:54 02/07/25 23:28 Range/Units Prothrombin Time 11.7 H 9.6-11.6 SEC Prothromb Time International Ratio 1.12 0.85-1.15 Activated Partial Thromboplast Time 24.0 L 26.3-35.5 SEC DIAGNOSTICS / RADIOLOGY RESULTS: [ ] PLAN -continue ICU Care -Titrate oxygen to keep sats >92% -Daily SBT as tolerated -Sedation vacation q am as tolerated: Currently on Propofol and Fentanyl drips switch to Precedex -+ for mycoplasma, stop vanco, start doxy and continue cefepime. -Pending blood CX -Obtain pneumo studies -Start on IV Solumedrol therapy and wean as possible -Maintain hemodynamic stability to keep MAP >65: Current pressor Levophed, add Neosynephrine if HR continues to be tachy 02/09/2025: For now, going to continue current management for the patient. He will remain on sedation with Precedex and planned for early sedation vacation. We will continue on mechanical ventilation for support. Daily CPAP trials until parameters are met for extubation. The patient will continue antibiotic coverage with doxycycline, cefepime and Flagyl. We will correct any electrolyte imbalance as necessary. We will repeat surveillance labs in the morning. We will monitor the patient's progress and response to management. We will continue to provide general supportive care, GI and DVT prophylaxis. Further orders per attending MD and hospital course. NEURO: Minimize central acting medications as possible. Fall Precautions. Well lighted room through the day and minimize interruptions through the night to prevent acute delirium. PULMONARY: Supplemental 02 as needed Titrate Fio2 to keep Spo2 > or = 90% DuoNebs and CPT as needed IS hourly while awake for pulmonary hygiene Out of bed to chair as tolerated VAP Bundle Vent/BIPAP Settings: [ acvc 450/16/45%/5] Driving pressure: [ goal < 30] CARDIOVASCULAR: Follow hemodynamics. Titrate vasopressor to keep MAP >65 or systolic blood pressure >95mmHg DRIPS: Precedex Levophed LINES: [piv if unable to wean levophed conside picc line ] GI & NUTRITION: Continue nutritional support Aspirations precautions Prokinetic agents and laxatives as needed KIDNEYS & ELECTROLYTES: Strict monitoring of intake and output Daily weights Avoid nephrotoxic agents Monitor electrolytes and replace as needed Goal urine output of 30mL/hr or 0.5mL/kg/hr Urine output: [ ] Fluid Balance: [ ] ENDOCRINE: Maintain blood glucose between 100-180 at all times. Insulin sliding scale for blood glucose management INFECTIOUS DISEASE: Trend temperature. Mora-culture if febrile. Micro: [ ] + for mycoplasma Antibiotics: [ Cefepime, Flagyl and doxy] HEMATOLOGY & COAGULATION: Monitor H&H. Keep Hgb > 7 Transfuse 1 unit of PRBC for Hgb < 7 Transfuse 1 pack of platelets of platelets < 20, 000 Watch for any signs and symptoms of bleeding SKIN: Pressure ulcer prevention per facility protocol Rehab: PT/OT Prophylaxis: GI: [ Protonix] DVT: Loveno ] Code Status: Full Resuscitation Disposition: ICU Other: I personally spent 42 minutes of critical care time in treatment of this patient. This includes patient management, time at bedside, time reviewing tests, labs, appropriate images and studies, documentation, and patient care coordination. This time excludes separately billable procedures.. Case was discussed and seen with my supervising physician. The above plan was formulated and agreed upon. BHARATHI FREGOSO NP February 09, 2025 12:38
[2025-02-09] MEDS: BALSAM PERU/CASTOR OIL 60 GM TUBE TP SCH (14:03)
--- NOTE | 2025-02-09 14:30 | NUR ---
[facility] Consult: Patient assessed by wound healing team. Patient with low cheri score with no wounds noted. Rash to groin, perineum, rectum. Assessment and recommendations provided to primary nurse. Education provided. Addendum: 02/12/25 at [address] RN RN/ Amended: Links added.
[2025-02-10] VITALS (54 sets, daily range): BP systolic 122–152; BP diastolic 57–96; PULSE 63–90; RESP 18–123; TEMP 98.2–99.1; O2SAT 98–100
--- NOTE | 2025-02-10 00:09 | NUR ---
Rafael oseguera in ED - 02/10/25 at 0108 by MARY JO PATIENT REMAINS TACHYPNEIC, ED MADE AWARE, ORDER FOR BIPAP, RT MADE AWARE.
[2025-02-10 05:01] LABS: BASOPHILS # (AUTO) 0.01 K/uL (0.00-0.20); BASOPHILS % (AUTO) 0.1 % (0.0-5.0); HEMATOCRIT 29.4 % (42-54); IMMATURE GRANULOCYTE ABSOLUTE 0.06 K/uL (0-1); LYMPHOCYTES # (AUTO) 0.2 K/uL (1.0-4.8); LYMPHOCYTES % (AUTO) 2.3 % (21.0-51.0); MEAN CORPUSCULAR HEMOGLOBIN 27.3 pg (27.0-33.0); MEAN CORPUSCULAR HGB CONC 32.7 g/dL (32.0-36.0); MEAN CORPUSCULAR VOLUME 83.5 fL (79-99); MONOCYTES # (AUTO) 0.2 K/uL (0.1-1.0); MONOCYTES % (AUTO) 2.3 % (3.0-13.0); NEUTROPHILS # (AUTO) 9.2 K/uL (1.8-7.7); NEUTROPHILS % (AUTO) 94.7 % (40.0-77.0); NUCLEATED RED BLOOD CELLS 0.2 % (0.0-0.19); PLATELET COUNT (AUTO) 293 K/uL (130-400); RED BLOOD CELL COUNT(AUTO) 3.52 MIL/uL (4.50-6.20); RED CELL DISTRIBUTION WIDTH 14.6 % (11.0-15.5); WHITE BLOOD COUNT (AUTO) 9.7 K/uL (4.8-10.8)
[2025-02-10 05:09] LABS: CREATININE 0.6 mg/dL (0.5-1.3); POTASSIUM 4.1 mmol/L (3.5-5.1)
[2025-02-10 12:13] LABS: ABG BASE EXCESS 4.3 mmol/L (-2.0-3.0); ABG HCO3 26.9 mmol/L (21.0-28.0); ABG OXYGEN SATURATION 99.8 % (94.0-98.0); ABG PCO2 34 mmHg (35-48); ABG PH 7.514 (7.350-7.450); DEVICE COMMENT RR; PO2, ARTERIAL BG 340.4 mmHg (83.0-108.0); VENT MODE, BG CPAP PS5 (ROOM AIR)
[2025-02-10] MEDS ORDERED: PHARMACY COMMUNICATION 1 EACH EACH MISC SCH (12:30)
--- NOTE | 2025-02-10 12:36 | NUR ---
Patient extubated and placed on aerosol mask 40% at this time.
--- NOTE | 2025-02-10 14:57 | PN ---
[facility] PROGRESS NOTE Date Patient Seen: February 10, 2025 Time of Visit: 14:54 Supervising Physician: Dr. Hunter Primary Care Physician: [Dr. 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 Currently on propofol at 50 mcg/kg/min, fentanyl at 200mcg/hr, and on pressors with levophed weaning at 0.2 mcg/kg/min, Ventilator settings with ACVC adjusted this morning to TV 450/RR 16/fio2 at 45% and peep of 5. Per family they are confused as to previous discharge 3 days ago. Son was undee the understanding pt was going to start hospice at home. When hospice office was called there was no set up in place. Plans request per pt's family is that possibly optimize medical management get pt off the ventilator when ready and hope to take pt on hospice home with hospice arranged prior to discharge. This was discussed with [employer] manager and fam. Family requesting [place] [facility]. For now we will start sedation vacation and SBT's . He didnt do well on CPAP today due to tavhypnea so we will attempt SBTs again in am. WBCs white count is 17.4 H&H is 10/30.8 creatinine is normal 0.8 with a GFR over 89. COVID and flu are negative. Strep throat is negative. Chest x-ray with bilateral pneumonia. ET tube at 5.2 cm in the elizabeth ordered and coordinated with the RT to person 1 cm. 02/09/2025: At the time of my evaluation, the patient was lying in bed. He remains intubated and mechanically vented. ABG today showed low PO2 of 56.7 with normal pH and pCO2. On monitor the patient showed no events, no tachycardia or tachypnea. Blood pressure was within normal ranges. Laboratory data today showed improved WBC count 13 .1. No severe anemia or thrombocytopenia. Chemistry panel was unremarkable. Microbiology data so far negative. Chest x-ray today showed presence of a endotracheal tube approximately the tip is 2 cm above the elizabeth. There were diffuse pulmonary vascular congestion and bilateral pneumonic infiltrates. No new complaint. 02/10/2025: At the time of my evaluation, the patient is lying in bed. He is currently off sedation and a RASS score of -1. He was extubated earlier today and is currently on a Ventimask. ABG prior to extubation showed a pH of 7.51, pCO2 34, PO2 340.4 and HC03 of 26.9 with a base excess of 4.3. On the monitor, he is normotensive, no tachycardia or tachypnea. The staff nurse reports no acute events overnight. Mcgregor catheter remains in place and urinary output documented at 9:00 p.m. with a balance of + 199.9. The patient continues on antibiotic coverage with doxycycline, Flagyl and cefepime. He is also on steroid therapy with Solu-Medrol. Laboratory data today reviewed, CBC showed resolved leukocytosis, no profound anemia or thrombocytopenia. Chemistry panel was unremarkable. No other complaint. REVIEW OF SYSTEMS: unable to perform due to pt intubated. PHYSICAL EXAM: GENERAL: Chronically ill appearing. HEENT: EOMI, Sclera non icteric, dry mucosa NECK: Supple, no JVD, trachea midline LUNGS: Diminished breath sounds bilaterally. No wheezes, rhonchi or crackles HEART: Regular rate and rhythm. Normal S1 and S2, without murmurs, tachy ABD: Abdomen soft, nontender. Bowel sounds present, PEG tube in situ EXT: No clubbing cyanosis or edema, left leg erythema with ecchymosis-> no edema NEURO: Somnolent, RASS score of -1. Vital Signs (last 8hr) Date Time Temp Pulse Resp B/P (MAP) Pulse Ox O2 Delivery O2 Flow Rate FiO2 02/10/25 12:45 74 31 139/63 (88) 100 02/10/25 12:36 85 18 10.0 40 02/10/25 12:15 79 25 137/65 (89) 99 02/10/25 12:04 75 30 02/10/25 11:45 76 26 141/66 (91) 100 02/10/25 11:15 79 29 143/64 (90) 100 02/10/25 11:09 98.4 Ventilator 30 02/10/25 10:45 79 24 143/69 (93) 100 02/10/25 10:15 78 24 145/69 (94) 100 02/10/25 09:45 79 25 143/70 (94) 100 02/10/25 09:18 67 21 02/10/25 09:16 66 30 02/10/25 09:15 77 29 145/63 (90) 100 02/10/25 08:45 71 29 141/66 (91) 100 02/10/25 08:15 85 22 124/73 (90) 98 02/10/25 08:00 98.4 02/10/25 07:45 71 45 149/73 (98) 100 02/10/25 07:15 65 32 151/68 (95) 100 LABS: Hematology Labs: Test 02/10/25 04:18 02/09/25 05:28 Range/Units White Blood Count 9.7 # 4.8-10.8 K/uL Red Blood Count 3.52 L 4.50-6.20 MIL/uL Hemoglobin 9.6 L 14.0-18.0 g/dL Hematocrit 29.4 L 42-54 % Mean Corpuscular Volume 83.5 79-99 fL Mean Corpuscular Hemoglobin 27.3 27.0-33.0 pg Mean Corpuscular Hemoglobin Concent 32.7 32.0-36.0 g/dL Red Cell Distribution Width 14.6 11.0-15.5 % Platelet Count 293 130-400 K/uL Mean Platelet Volume 9.1 7.5-10.5 fL Immature Granulocyte % (Auto) 0.6 0-1 % Neutrophils (%) (Auto) 94.7 H 40.0-77.0 % Lymphocytes (%) (Auto) 2.3 L 21.0-51.0 % Monocytes (%) (Auto) 2.3 L 3.0-13.0 % Eosinophils (%) (Auto) 0.0 0.0-8.0 % Basophils (%) (Auto) 0.1 0.0-5.0 % Neutrophils # (Auto) 9.2 H 1.8-7.7 K/uL Lymphocytes # (Auto) 0.2 L 1.0-4.8 K/uL Monocytes # (Auto) 0.2 0.1-1.0 K/uL Eosinophils # (Auto) 0.00 0.00-0.70 K/uL Basophils # (Auto) 0.01 0.00-0.20 K/uL Absolute Immature Granulocyte (auto 0.06 0-1 K/uL Nucleated Red Blood Cells 0.2 H 0.0-0.19 % White Cell Morphology Comment See comments Chemistry Labs: Test 02/10/25 11:05 02/10/25 04:18 02/09/25 05:28 02/09/25 04:01 Range/Units Whole Blood Glucose 272 #H 70-110 MG/DL Sodium Level 140 136-145 mmol/L Potassium Level 4.1 3.5-5.1 mmol/L Chloride Level 106 101-111 mmol/L Carbon Dioxide Level 27 21-32 mmol/L Blood Urea Nitrogen 25 H 7-18 mg/dL Creatinine 0.6 0.5-1.3 mg/dL Glomerular Filtration Rate Calc 98 >90 mL/min Random Glucose 269 H 70-105 mg/dL Total Calcium 8.3 L 8.5-10.1 mg/dL Hemoglobin A1c 6.2 H 4.0-6.0 % Estimated Average Glucose (eAG) 131 H 70-126 mg/dL B-Type Natriuretic Peptide 731 H 0-100 pg/mL Lactic Acid Level 1.4 0.8-2.5 mmol/L Phosphorus Level 3.0 2.5-4.9 mg/dL Magnesium Level 2.50 H 1.80-2.40 mg/dL Total Bilirubin 0.3 0.2-1.0 mg/dL Aspartate Amino Transf (AST/SGOT) 19 10-37 U/L Alanine Aminotransferase (ALT/SGPT) 15 12-78 U/L Alkaline Phosphatase 107 50-136 U/L Total Protein 6.3 6.0-8.3 g/dL Albumin 1.8 L 3.5-5.0 g/dL Procalcitonin 7.08 H 0.05-0.5 ng/mL Thyroid Stimulating Hormone (TSH) 0.47 # 0.36-3.74 uIU/mL DIAGNOSTICS / RADIOLOGY RESULTS: [ ] PLAN -continue ICU Care -Titrate oxygen to keep sats >92% -Daily SBT as tolerated -Sedation vacation q am as tolerated: Currently on Propofol and Fentanyl drips switch to Precedex -+ for mycoplasma, stop vanco, start doxy and continue cefepime. -Pending blood CX -Obtain pneumo studies -Start on IV Solumedrol therapy and wean as possible -Maintain hemodynamic stability to keep MAP >65: Current pressor Levophed, add Neosynephrine if HR continues to be tachy 02/09/2025: For now, going to continue current management for the patient. He will remain on sedation with Precedex and planned for early sedation vacation. We will continue on mechanical ventilation for support. Daily CPAP trials until parameters are met for extubation. The patient will continue antibiotic coverage with doxycycline, cefepime and Flagyl. We will correct any electrolyte imbalance as necessary. We will repeat surveillance labs in the morning. We will monitor the patient's progress and response to management. We will continue to provide general supportive care, GI and DVT prophylaxis. Further orders per attending MD and hospital course. 02/10/2025: For now, we are going to continue current management for the patient. We are going to monitor him on the Ventimask and we will wean oxygen supplementation as necessary. We will continue nutritional support via the PEG tube. Based on my understanding, the plan is for the patient to return home with hospice care. Family members agreed on home with hospice only after he is extubated. Since the patient is now extubated, we will monitor him for the next 24 hours and if remained stable, we will notify case management to arrange for hospice care of choice. For now, we will monitor the patient's progress and response to management. We will continue to provide general supportive care, GI and DVT prophylaxis. Further orders per attending MD and hospital course. NEURO: Minimize central acting medications as possible. Fall Precautions. Well lighted room through the day and minimize interruptions through the night to prevent acute delirium. PULMONARY: Supplemental 02 as needed Titrate Fio2 to keep Spo2 > or = 90% DuoNebs and CPT as needed IS hourly while awake for pulmonary hygiene Out of bed to chair as tolerated VAP Bundle CARDIOVASCULAR: Follow hemodynamics. Titrate vasopressor to keep MAP >65 or systolic blood pressure >95mmHg DRIPS: LINES: GI & NUTRITION: Continue nutritional support Aspirations precautions Prokinetic agents and laxatives as needed KIDNEYS & ELECTROLYTES: Strict monitoring of intake and output Daily weights Avoid nephrotoxic agents Monitor electrolytes and replace as needed Goal urine output of 30mL/hr or 0.5mL/kg/hr Urine output: [ ] Fluid Balance: [ ] ENDOCRINE: Maintain blood glucose between 100-180 at all times. Insulin sliding scale for blood glucose management INFECTIOUS DISEASE: Trend temperature. Mora-culture if febrile. Micro: [ ] + for mycoplasma Antibiotics: [ Cefepime, Flagyl and doxy] HEMATOLOGY & COAGULATION: Monitor H&H. Keep Hgb > 7 Transfuse 1 unit of PRBC for Hgb < 7 Transfuse 1 pack of platelets of platelets < 20, 000 Watch for any signs and symptoms of bleeding SKIN: Pressure ulcer prevention per facility protocol Rehab: PT/OT Prophylaxis: GI: [ Protonix] DVT: Lovenox ] Code Status: Full Resuscitation Disposition: ICU Other: I personally spent 42 minutes of critical care time in treatment of this patient. This includes patient management, time at bedside, time reviewing tests, labs, appropriate images and studies, documentation, and patient care c oordination. This time excludes separately billable procedures.. Case was discussed and seen with my supervising physician. The above plan was formulated and agreed upon. BHARATHI FREGOSO NP February 10, 2025 14:57
[2025-02-11] VITALS (27 sets, daily range): BP systolic 125–150; BP diastolic 56–80; PULSE 67–93; RESP 16–46; TEMP 98.1–98.9; O2SAT 99–100
[2025-02-11 03:57] LABS: HEMATOCRIT 30.7 % (42-54); IMMATURE GRANULOCYTE ABSOLUTE 0.07 K/uL (0-1); LYMPHOCYTES # (AUTO) 0.3 K/uL (1.0-4.8); LYMPHOCYTES % (AUTO) 3.5 % (21.0-51.0); MEAN CORPUSCULAR HGB CONC 32.6 g/dL (32.0-36.0); MONOCYTES # (AUTO) 0.2 K/uL (0.1-1.0); MONOCYTES % (AUTO) 2.1 % (3.0-13.0); NEUTROPHILS % (AUTO) 93.6 % (40.0-77.0); PLATELET COUNT (AUTO) 304 K/uL (130-400); RED CELL DISTRIBUTION WIDTH 14.3 % (11.0-15.5); WHITE BLOOD COUNT (AUTO) 8.5 K/uL (4.8-10.8)
[2025-02-11 04:04] LABS: CREATININE 0.6 mg/dL (0.5-1.3); POTASSIUM 3.8 mmol/L (3.5-5.1)
--- NOTE | 2025-02-11 12:40 | PN ---
[facility] PROGRESS NOTE Date Patient Seen: February 11, 2025 Time of Visit: 12:34 Supervising Physician: Dr. Laguna Primary Care Physician: [Dr. 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 Currently on propofol at 50 mcg/kg/min, fentanyl at 200mcg/hr, and on pressors with levophed weaning at 0.2 mcg/kg/min, Ventilator settings with ACVC adjusted this morning to TV 450/RR 16/fio2 at 45% and peep of 5. Per family they are confused as to previous discharge 3 days ago. Son was undee the understanding pt was going to start hospice at home. When hospice office was called there was no set up in place. Plans request per pt's family is that possibly optimize medical management get pt off the ventilator when ready and hope to take pt on hospice home with hospice arranged prior to discharge. This was discussed with Peter fund development manager and fam. Family requesting [place] [facility]. For now we will start sedation vacation and SBT's . He didnt do well on CPAP today due to tavhypnea so we will attempt SBTs again in am. WBCs white count is 17.4 H&H is 10/30.8 creatinine is normal 0.8 with a GFR over 89. COVID and flu are negative. Strep throat is negative. Chest x-ray with bilateral pneumonia. ET tube at 5.2 cm in the elizabeth ordered and coordinated with the RT to person 1 cm. 02/09/2025: At the time of my evaluation, the patient was lying in bed. He remains intubated and mechanically vented. ABG today showed low PO2 of 56.7 with normal pH and pCO2. On monitor the patient showed no events, no tachycar lali or tachypnea. Blood pressure was within normal ranges. Laboratory data today showed improved WBC count 13 .1. No severe anemia or thrombocytopenia. Chemistry panel was unremarkable. Microbiology data so far negative. Chest x- ray today showed presence of a endotracheal tube approximately the tip is 2 cm above the elizabeth. There were diffuse pulmonary vascular congestion and bilateral pneumonic infiltrates. No new complaint. 02/10/2025: At the time of my evaluation, the patient is lying in bed. He is currently off sedation and a RASS score of -1. He was extubated earlier today and is currently on a Ventimask. ABG prior to extubation showed a pH of 7.51, pCO2 34, PO2 340.4 and HC03 of 26.9 with a base excess of 4.3. On the monitor, he is normotensive, no tachycardia or tachypnea. The staff nurse reports no acute events overnight. Mcgregor catheter remains in place and urinary output documented at 9:00 p.m. with a balance of + 199.9. The patient continues on antibiotic coverage with doxycycline, Flagyl and cefepime. He is also on steroid therapy with Solu-Medrol. Laboratory data today reviewed, CBC showed resolved leukocytosis, no profound anemia or thrombocytopenia. Chemistry panel was unremarkable. No other complaint. 02/11/2025: At the time of my evaluation, the patient was lying in bed. He is awake alert and following commands. Family members were present visiting with the patient. Staff nurse reports no acute events overnight. On the monitor, the patient is hemodynamically stable and remains on oxygen supplementation via nasal cannula. Laboratory data was unremarkable no new microbiology data. No new imaging for review. Currently, the patient remains on antibiotic coverage with doxycycline, Flagyl and cefepime. He also receives bronchodilator therapy and IV Solu-Medrol. No other complaint. REVIEW OF SYSTEMS: 12-point system review was carried out and pertinent positive documented above. Otherwise pertinent negative. PHYSICAL EXAM: GENERAL: Chronically ill appearing. HEENT: EOMI, Sclera non icteric, dry mucosa NECK: Supple, no JVD, trachea midline LUNGS: Diminished breath sounds bilaterally. No wheezes, rhonchi or crackles HEART: Regular rate and rhythm. Normal S1 and S2, without murmurs, tachy ABD: Abdomen soft, nontender. Bowel sounds present, PEG tube in situ EXT: No clubbing cyanosis or edema, left leg erythema with ecchymosis-> no edema NEURO: Awake, alert and following commands. Vital Signs (last 8hr) Date Time Temp Pulse Resp B/P (MAP) Pulse Ox O2 Delivery O2 Flow Rate FiO2 02/11/25 10:51 69 18 02/11/25 08:00 99.0 Nasal Cannula 2.0 02/11/25 08:00 80 27 133/65 (87) 100 02/11/25 08:00 100 Nasal Cannula* 2 28 02/11/25 07:08 69 18 N/Cannula Low lpm 2.0 28 02/11/25 07:06 67 18 02/11/25 06:00 68 23 148/68 (94) 100 32 02/11/25 05:00 80 17 148/68 (94) 100 32 LABS: Hematology Labs: Test 02/11/25 03:29 Range/Units White Blood Count 8.5 4.8-10.8 K/uL Red Blood Count 3.70 L 4.50-6.20 MIL/uL Hemoglobin 10.0 L 14.0-18.0 g/dL Hematocrit 30.7 L 42-54 % Mean Corpuscular Volume 83.0 79-99 fL Mean Corpuscular Hemoglobin 27.0 27.0-33.0 pg Mean Corpuscular Hemoglobin Concent 32.6 32.0-36.0 g/dL Red Cell Distribution Width 14.3 11.0-15.5 % Platelet Count 304 130-400 K/uL Mean Platelet Volume 8.9 7.5-10.5 fL Immature Granulocyte % (Auto) 0.8 0-1 % Neutrophils (%) (Auto) 93.6 H 40.0-77.0 % Lymphocytes (%) (Auto) 3.5 L 21.0-51.0 % Monocytes (%) (Auto) 2.1 L 3.0-13.0 % Eosinophils (%) (Auto) 0.0 0.0-8.0 % Basophils (%) (Auto) 0.0 0.0-5.0 % Neutrophils # (Auto) 8.0 H 1.8-7.7 K/uL Lymphocytes # (Auto) 0.3 L 1.0-4.8 K/uL Monocytes # (Auto) 0.2 0.1-1.0 K/uL Eosinophils # (Auto) 0.00 0.00-0.70 K/uL Basophils # (Auto) 0.00 0.00-0.20 K/uL Absolute Immature Granulocyte (auto 0.07 0-1 K/uL Nucleated Red Blood Cells 0.0 0.0-0.19 % Chemistry Labs: Test 02/11/25 12:11 02/11/25 03:29 Range/Units Whole Blood Glucose 184 H 70-110 MG/DL Sodium Level 136 136-145 mmol/L Potassium Level 3.8 3.5-5.1 mmol/L Chloride Level 101 101-111 mmol/L Carbon Dioxide Level 28 21-32 mmol/L Blood Urea Nitrogen 23 H 7-18 mg/dL Creatinine 0.6 0.5-1.3 mg/dL Glomerular Filtration Rate Calc 98 >90 mL/min Random Glucose 257 H 70-105 mg/dL Total Calcium 8.0 L 8.5-10.1 mg/dL DIAGNOSTICS / RADIOLOGY RESULTS: [ ] PLAN 02/11/2025: For now, going to continue current management for the patient. I am going to decrease the dose of the Solu-Medrol. We are going to continue with antibiotic coverage as ordered. I believe the patient can be safely downgraded out of the ICU. The end plan is to return home with hospice care. We will monitor the patient's progress and response to management. We will continue to provide general supportive care, GI and DVT prophylaxis. Further orders per attending MD and hospital course. NEURO: Minimize central acting medications as possible. Maintain fall precautions, adequate lighting during the day PULMONARY: Supplemental 02 as needed. Maintain aspiration precautions at all times CARDIOVASCULAR: Follow hemodynamics. Vital signs per facility protocol GI & NUTRITION: Continue with nutritional support. Continue stool softeners and laxatives as needed. KIDNEYS & ELECTROLYTES: Strict monitoring of intake, output and overall fluid balance. Avoid nephrotoxic medications to the extent possible. Medications to be dosed according to renal function. Monitor electrolytes and replace as needed ENDOCRINE: Maintain blood glucose between 100-180 at all times. Hypoglycemia protocol in place INFECTIOUS DISEASE: Trend temperature, WBC and procalcitonin level Follow cultures, deescalate antibiotics as soon as possible. Panculture if new onset fever ONCOLOGY/HEMATOLOGY/COAGULATION: Monitor for s/s of bleeding Monitor hemoglobin, coagulation studies as needed SKIN: Pressure ulcer prevention per facility protocol Specialty mattress ORTHO/REHAB: Continue PT/OT Prophylaxis: Continue GI and DVT prophylaxis Code Status: Full Resuscitation Disposition: TBD Other: Patient was seen and case discussed with rounding MD. Plan of care was discussed and agreed upon. 12-point system review was carried out and pertinent positive documented above. Otherwise pertinent negative. BHARATHI FREGOSO SAUSAGE LINKER February 11, 2025 12:40
--- NOTE | 2025-02-11 14:31 | NUR ---
Nutrition consult per TF recs Reviewed labs, notes, and medications. Pt readmin 02/08/25, vit. D 18.7 from last admin 02/02/25, elevated BUN 25, Cr WNL, BG 272(H), low CO2 34(L), insulin per chart review. Wt via bed scale, -1119 balance 02/09/25, on BI PAP per nursing. TF off, MAP 72, visually assessed mild muscle and fat loss. Pt with non-severe PCM, Supplement thiamin 100 mg/day for 5-7 days + MVI QD for at least 10 days. If Pt hemodynamically stable and CO2 WNL provide TF at goal rate. Start TF rate @ 25 ml/hr for the first 4 hours, increase 5 ml Q2H until you reach goal rate. If residual >500 ml stop TF for 2 hours and then restart if residual continues to be >500 ml stop TF and notify MD. Recommendations: -Provide Glucerna 1.5 @ 55 ml/hr x 22 hrs + 200 Q4H Provides: 1815 kcals, 100 gm pro, 2118 ml per day -If bolus provide: 5 cans of Glucerna 1.5 (times: 0900,1400, 1900, 0000) 30 ml before and after each feed -Monitor BM -If no BM >3 days consider stool softener -Monitor electrolytes -Replenish electrolytes per protocol -Monitor wts -Reweigh as able -Order Vit D, vit b12 labs to rule out deficiencies -Provide MVI QD -Recommend Pt to follow up with PCP -Monitor TF tolerance + need for TF adjustment -Monitor goals of care RD to follow + available for consult per protocol Addendum: 02/11/25 at [address] Amended: Links added.
--- NOTE | 2025-02-11 17:17 | NUR ---
Bedside report given to Alley UPTON
--- NOTE | 2025-02-11 17:50 | NUR ---
1710 BEDSIDE REPORT GIVEN BY BARBARA UPTON. PT IN NO DISTRESS. ON A WAFFLE MATTRESS. REDNESS TO COCCYX/BUTTOCKS. ON O2 @ 2 L/MIN VIA NC. PLACED ON PEG FEEDING OF GLUCERNA @ 40CC/HR.
[2025-02-11] MEDS: Solu-medROL 40MG VIAL IVP SCH (21:42)
[2025-02-12] VITALS (14 sets, daily range): BP systolic 123–148; BP diastolic 52–78; PULSE 68–98; RESP 16–21; TEMP 97.9–98.2; O2SAT 95–100
[2025-02-12 06:23] LABS: BASOPHILS # (AUTO) 0.01 K/uL (0.00-0.20); BASOPHILS % (AUTO) 0.1 % (0.0-5.0); HEMATOCRIT 33.8 % (42-54); IMMATURE GRANULOCYTE ABSOLUTE 0.12 K/uL (0-1); LYMPHOCYTES # (AUTO) 0.4 K/uL (1.0-4.8); LYMPHOCYTES % (AUTO) 4.1 % (21.0-51.0); MEAN CORPUSCULAR HEMOGLOBIN 27.1 pg (27.0-33.0); MEAN CORPUSCULAR VOLUME 84.7 fL (79-99); MONOCYTES # (AUTO) 0.5 K/uL (0.1-1.0); MONOCYTES % (AUTO) 4.7 % (3.0-13.0); NEUTROPHILS # (AUTO) 9.7 K/uL (1.8-7.7); PLATELET COUNT (AUTO) 359 K/uL (130-400); RED BLOOD CELL COUNT(AUTO) 3.99 MIL/uL (4.50-6.20); RED CELL DISTRIBUTION WIDTH 14.1 % (11.0-15.5); WHITE BLOOD COUNT (AUTO) 10.8 K/uL (4.8-10.8)
[2025-02-12 06:34] LABS: CREATININE 0.7 mg/dL (0.5-1.3); POTASSIUM 4.3 mmol/L (3.5-5.1)
--- NOTE | 2025-02-12 15:58 | NUR ---
SW received referral for hospice, read note that stated that son previously had reached out to [facility]. SW went to room and no family was present at that time. SW attempted to get in contact with son however there was no answer or given option to leave voicemail.
[2025-02-13] VITALS (14 sets, daily range): BP systolic 113–129; BP diastolic 56–70; PULSE 74–92; RESP 17–20; TEMP 97.2–98.1; O2SAT 97–100
--- NOTE | 2025-02-13 05:29 | PN ---
[facility] PROGRESS NOTE Date Patient Seen: February 13, 2025 Time of Visit: 05:24 Supervising Physician: [Dr. Laguna] Primary Care Physician: [Dr. 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 Currently on propofol at 50 mcg/kg/min, fentanyl at 200mcg/hr, and on pressors with levophed weaning at 0.2 mcg/kg/min, Ventilator settings with ACVC adjusted this morning to TV 450/RR 16/fio2 at 45% and peep of 5. Per family they are confused as to previous discharge 3 days ago. Son was undee the understanding pt was going to start hospice at home. When hospice office was called there was no set up in place. Plans request per pt's family is that possibly optimize medical management get pt off the ventilator when ready and hope to take pt on hospice home with hospice arranged prior to discharge. This was discussed with Peter development system efficiency manager and fam. Family requesting [place] [facility]. For now we will start sedation vacation and SBT's . He didnt do well on CPAP today due to tavhypnea so we will attempt SBTs again in am. WBCs white count is 17.4 H&H is 10/30.8 creatinine is normal 0.8 with a GFR over 89. COVID and flu are negative . Strep throat is negative. Chest x-ray with bilateral pneumonia. ET tube at 5.2 cm in the elizabeth ordered and coordinated with the RT to person 1 cm. 02/09/2025: At the time of my evaluation, the patient was lying in bed. He remains intubated and mechanically vented. ABG today showed low PO2 of 56.7 with normal pH and pCO2. On monitor the patient showed no events, no tachyc ardia or tachypnea. Blood pressure was within normal ranges. Laboratory data today showed improved WBC count 13 .1. No severe anemia or thrombocytopenia. Chemistry panel was unremarkable. Microbiology data so far negative. Chest x- ray today showed presence of a endotracheal tube approximately the tip is 2 cm above the elizabeth. There were diffuse pulmonary vascular congestion and bilateral pneumonic infiltrates. No new complaint. 02/10/2025: At the time of my evaluation, the patient is lying in bed. He is currently off sedation and a RASS score of -1. He was extubated earlier today and is currently on a Ventimask. ABG prior to extubation showed a pH of 7.51, pCO2 34, PO2 340.4 and HC03 of 26.9 with a base excess of 4.3. On the monitor, he is normotensive, no tachycardia or tachypnea. The staff nurse reports no acute events overnight. Mcgregor catheter remains in place and urinary output documented at 9:00 p.m. with a balance of + 199.9. The patient continues on antibiotic coverage with doxycycline, Flagyl and cefepime. He is also on steroid therapy with Solu-Medrol. Laboratory data today reviewed, CBC showed resolved leukocytosis, no profound anemia or thrombocytopenia. Chemistry panel was unremarkable. No other complaint. 02/11/2025: At the time of my evaluation, the patient was lying in bed. He is awake alert and following commands. Family members were present visiting with the patient. Staff nurse reports no acute events overnight. On the monitor, the patient is hemodynamically stable and remains on oxygen supplementation via nasal cannula. Laboratory data was unremarkable no new microbiology data. No new imaging for review. Currently, the patient remains on antibiotic coverage with doxycycline, Flagyl and cefepime. He also receives bronchodilator therapy and IV Solu-Medrol. No other complaint. 02/12 This is a late entry. Vitals reviewed and are within normal limits, he continues on room air. He has diuresed 2300ml in the last 24 hours. Continues on IV abx. CBC and BMP are unremarkable. Family is requesting hospice services, case management consulted for the same. REVIEW OF SYSTEMS: 12-point system review was carried out and pertinent positive documented above. Otherwise pertinent negative. PHYSICAL EXAM: GENERAL: Chronically ill appearing. HEENT: EOMI, Sclera non icteric, dry mucosa NECK: Supple, no JVD, trachea midline LUNGS: Diminished breath sounds bilaterally. No wheezes, rhonchi or crackles HEART: Regular rate and rhythm. Normal S1 and S2, without murmurs, tachy ABD: Abdomen soft, nontender. Bowel sounds present, PEG tube in situ EXT: No clubbing cyanosis or edema, left leg erythema with ecchymosis-> no edema NEURO: Awake, alert and following commands. Vital Signs (last 8hr) Date Time Temp Pulse Resp B/P (MAP) Pulse Ox O2 Delivery O2 Flow Rate FiO2 02/13/25 04:00 97.5 91 18 113/60 97 Room Air 02/13/25 01:48 89 18 02/13/25 00:00 97.2 91 18 120/60 97 Room Air 02/12/25 22:49 90 18 LABS: Hematology Labs: Test 02/12/25 05:55 Range/Units White Blood Count 10.8 4.8-10.8 K/uL Red Blood Count 3.99 L 4.50-6.20 MIL/uL Hemoglobin 10.8 L 14.0-18.0 g/dL Hematocrit 33.8 L 42-54 % Mean Corpuscular Volume 84.7 79-99 fL Mean Corpuscular Hemoglobin 27.1 27.0-33.0 pg Mean Corpuscular Hemoglobin Concent 32.0 32.0-36.0 g/dL Red Cell Distribution Width 14.1 11.0-15.5 % Platelet Count 359 130-400 K/uL Mean Platelet Volume 8.7 7.5-10.5 fL Immature Granulocyte % (Auto) 1.1 H 0-1 % Neutrophils (%) (Auto) 90.0 H 40.0-77.0 % Lymphocytes (%) (Auto) 4.1 L 21.0-51.0 % Monocytes (%) (Auto) 4.7 3.0-13.0 % Eosinophils (%) (Auto) 0.0 0.0-8.0 % Basophils (%) (Auto) 0.1 0.0-5.0 % Neutrophils # (Auto) 9.7 H 1.8-7.7 K/uL Lymphocytes # (Auto) 0.4 L 1.0-4.8 K/uL Monocytes # (Auto) 0.5 0.1-1.0 K/uL Eosinophils # (Auto) 0.00 0.00-0.70 K/uL Basophils # (Auto) 0.01 0.00-0.20 K/uL Absolute Immature Granulocyte (auto 0.12 0-1 K/uL Nucleated Red Blood Cells 0.0 0.0-0.19 % Chemistry Labs: Test 02/13/25 00:21 02/12/25 05:55 Range/Units Whole Blood Glucose 197 H 70-110 MG/DL Sodium Level 136 136-145 mmol/L Potassium Level 4.3 3.5-5.1 mmol/L Chloride Level 100 L 101-111 mmol/L Carbon Dioxide Level 28 21-32 mmol/L Blood Urea Nitrogen 26 H 7-18 mg/dL Creatinine 0.7 0.5-1.3 mg/dL Glomerular Filtration Rate Calc 93 >90 mL/min Random Glucose 269 H 70-105 mg/dL Total Calcium 8.2 L 8.5-10.1 mg/dL DIAGNOSTICS / RADIOLOGY RESULTS: [ ] PLAN Pending hospice Continue conservative management NEURO: Minimize central acting medications as possible. Maintain fall precautions, adequate lighting during the day PULMONARY: Supplemental 02 as needed. Maintain aspiration precautions at all times CARDIOVASCULAR: Follow hemodynamics. Vital signs per facility protocol GI & NUTRITION: Continue with nutritional support. Continue stool softeners and laxatives as needed. KIDNEYS & ELECTROLYTES: Strict monitoring of intake, output and overall fluid balance. Avoid nephrotoxic medications to the extent possible. Medications to be dosed according to renal function. Monitor electrolytes and replace as needed ENDOCRINE: Maintain blood glucose between 100-180 at all times. Hypoglycemia protocol in place INFECTIOUS DISEASE: Trend temperature, WBC and procalcitonin level Follow cultures, deescalate antibiotics as soon as possible. Panculture if new onset fever ONCOLOGY/HEMATOLOGY/COAGULATION: Monitor for s/s of bleeding Monitor hemoglobin, coagulation studies as needed SKIN: Pressure ulcer prevention per facility protocol Specialty mattress ORTHO/REHAB: Continue PT/OT Prophylaxis: Continue GI and DVT prophylaxis Code Status: Full Resuscitation Disposition: TBD Other: Patient was seen and case discussed with nahomy LEIGH. Plan of care was discussed and agreed upon. COLE WALTER February 13, 2025 05:29
--- NOTE | 2025-02-13 11:53 | PN ---
[facility] PROGRESS NOTE Date Patient Seen: February 13, 2025 Time of Visit: 11:45 Supervising Physician: [Dr. Laguna] Primary Care Physician: [Dr. 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 Currently on propofol at 50 mcg/kg/min, fentanyl at 200mcg/hr, and on pressors with levophed weaning at 0.2 mcg/kg/min, Ventilator settings with ACVC adjusted this morning to TV 450/RR 16/fio2 at 45% and peep of 5. Per family they are confused as to previous discharge 3 days ago. Son was undee the understanding pt was going to start hospice at home. When hospice office was called there was no set up in place. Plans request per pt's family is that possibly [facility] manage ment get pt off the ventilator when ready and hope to take pt on hospice home with hospice arranged prior to discharge. This was discussed with Peter salary manager and fam. Family requesting [facility]. For now we will start sedation vacation and SBT's . He didnt do well on CPAP today due to tavhypnea so we will attempt SBTs again in am. WBCs white count is 17.4 H&H is 10/30.8 creatinine is normal 0.8 with a GFR over 89. COVID and flu are negative. Strep throat is negative. Chest x-ray with bilateral pneumonia. ET tube at 5.2 cm in the elizabeth ordered and coordinated with the RT to person 1 cm. 02/09/2025: At the time of my evaluation, the patient was lying in bed. He remains intubated and mechanically vented. ABG today showed low PO2 of 56.7 with normal pH and pCO2. On monitor the patient showed no events, no tachycardia or tachypnea. Blood pressure was within normal ranges. Laboratory data today showed improved WBC count 13 .1. No severe anemia or thrombocytopenia. Chemistry panel was unremarkable. Microbiology data so far negative. Chest x-ray today showed presence of a endotracheal tube approximately the tip is 2 cm above the elizabeth. There were diffuse pulmonary vascular congestion and bilateral pneumonic infiltrates. No new complaint. 02/10/2025: At the time of my evaluation, the patient is lying in bed. He is currently off sedation and a RASS score of -1. He was extubated earlier today and is currently on a Ventimask. ABG prior to extubation showed a pH of 7.51, pCO2 34, PO2 340.4 and HC03 of 26.9 with a base excess of 4.3. On the monitor, he is normotensive, no tachycardia or tachypnea. The staff nurse reports no acute events overnight. Mcgregor catheter remains in place and urinary output documented at 9:00 p.m. with a balance of + 199.9. The patient continues on antibiotic coverage with doxycycline, Flagyl and cefepime. He is also on steroid therapy with Solu-Medrol. Laboratory data today reviewed, CBC showed resolved leukocytosis, no profound anemia or thrombocytopenia. Chemistry panel was unremarkable. No other complaint. 02/11/2025: At the time of my evaluation, the patient was lying in bed. He is awake alert and following commands. Family members were present visiting with the patient. Staff nurse reports no acute events overnight. On the monitor, the patient is hemodynamically stable and remains on oxygen supplementation via nasal cannula. Laboratory data was unremarkable no new microbiology data. No new imaging for review. Currently, the patient remains on antibiotic coverage with doxycycline, Flagyl and cefepime. He also receives bronchodilator therapy and IV Solu-Medrol. No other complaint. 02/12 This is a late entry. Vitals reviewed and are within normal limits, he continues on room air. He has diuresed 2300ml in the last 24 hours. Continues on IV abx. CBC and BMP are unremarkable. Family is requesting hospice services, case management consulted for the same. 02/13 patient is evaluated at bedside. No family at bedside. He continues on tube feeds at 60 mL an hour per nursing staff. Continues on IV antibiotics for mycoplasma pneumoniae and aspiration pneumonia. Most recent labs and vitals are reviewed and are unremarkable. Patient is pending hospice per son request. Pending case management evaluation for the same. REVIEW OF SYSTEMS: 12-point system review was carried out and pertinent positive documented above. Otherwise pertinent negative. PHYSICAL EXAM: GENERAL: Chronically ill appearing. HEENT: EOMI, Sclera non icteric, dry mucosa NECK: Supple, no JVD, trachea midline LUNGS: Diminished breath sounds bilaterally. No wheezes, rhonchi or crackles HEART: Regular rate and rhythm. Normal S1 and S2, without murmurs, tachy ABD: Abdomen soft, nontender. Bowel sounds present, PEG tube in situ EXT: No clubbing cyanosis or edema, left leg erythema with ecchymosis-> no edema NEURO: Awake, alert and following commands. Vital Signs (last 8hr) Date Time Temp Pulse Resp B/P (MAP) Pulse Ox O2 Delivery O2 Flow Rate FiO2 02/13/25 10:58 82 18 02/13/25 10:57 82 18 N/A Room Air 21 02/13/25 08:00 98.1 74 17 129/60 98 Room Air 02/13/25 06:36 78 18 02/13/25 06:36 78 18 N/A Room Air 21 02/13/25 04:00 97.5 91 18 113/60 97 Room Air LABS: Hematology Labs: Test 02/12/25 05:55 Range/Units White Blood Count 10.8 4.8-10.8 K/uL Red Blood Count 3.99 L 4.50-6.20 MIL/uL Hemoglobin 10.8 L 14.0-18.0 g/dL Hematocrit 33.8 L 42-54 % Mean Corpuscular Volume 84.7 79-99 fL Mean Corpuscular Hemoglobin 27.1 27.0-33.0 pg Mean Corpuscular Hemoglobin Concent 32.0 32.0-36.0 g/dL Red Cell Distribution Width 14.1 11.0-15.5 % Platelet Count 359 130-400 K/uL Mean Platelet Volume 8.7 7.5-10.5 fL Immature Granulocyte % (Auto) 1.1 H 0-1 % Neutrophils (%) (Auto) 90.0 H 40.0-77.0 % Lymphocytes (%) (Auto) 4.1 L 21.0-51.0 % Monocytes (%) (Auto) 4.7 3.0-13.0 % Eosinophils (%) (Auto) 0.0 0.0-8.0 % Basophils (%) (Auto) 0.1 0.0-5.0 % Neutrophils # (Auto) 9.7 H 1.8-7.7 K/uL Lymphocytes # (Auto) 0.4 L 1.0-4.8 K/uL Monocytes # (Auto) 0.5 0.1-1.0 K/uL Eosinophils # (Auto) 0.00 0.00-0.70 K/uL Basophils # (Auto) 0.01 0.00-0.20 K/uL Absolute Immature Granulocyte (auto 0.12 0-1 K/uL Nucleated Red Blood Cells 0.0 0.0-0.19 % Chemistry Labs: Test 02/13/25 11:37 02/12/25 05:55 Range/Units Whole Blood Glucose 156 H 70-110 MG/DL Sodium Level 136 136-145 mmol/L Potassium Level 4.3 3.5-5.1 mmol/L Chloride Level 100 L 101-111 mmol/L Carbon Dioxide Level 28 21-32 mmol/L Blood Urea Nitrogen 26 H 7-18 mg/dL Creatinine 0.7 0.5-1.3 mg/dL Glomerular Filtration Rate Calc 93 >90 mL/min Random Glucose 269 H 70-105 mg/dL Total Calcium 8.2 L 8.5-10.1 mg/dL DIAGNOSTICS / RADIOLOGY RESULTS: [ ] PLAN Pending hospice Continue conservative management NEURO: Minimize central acting medications as possible. Maintain fall precautions, adequate lighting during the day PULMONARY: Supplemental 02 as needed. Maintain aspiration precautions at all times CARDIOVASCULAR: Follow hemodynamics. Vital signs per facility protocol GI & NUTRITION: Continue with nutritional support. Continue stool softeners and laxatives as needed. KIDNEYS & ELECTROLYTES: Strict monitoring of intake, output and overall fluid balance. Avoid nephrotoxic medications to the extent possible. Medications to be dosed according to renal function. Monitor electrolytes and replace as needed ENDOCRINE: Maintain blood glucose between 100-180 at all times. Hypoglycemia protocol in place INFECTIOUS DISEASE: Trend temperature, WBC and procalcitonin level Follow cultures, deescalate antibiotics as soon as possible. Panculture if new onset fever ONCOLOGY/HEMATOLOGY/COAGULATION: Monitor for s/s of bleeding Monitor hemoglobin, coagulation studies as needed SKIN: Pressure ulcer prevention per facility protocol Specialty mattress ORTHO/REHAB: Continue PT/OT Prophylaxis: Continue GI and DVT prophylaxis Code Status: Full Resuscitation Disposition: TBD Other: Patient was seen and case discussed with nahomy LEIGH. Plan of care was discussed and agreed upon. COLE WALTER February 13, 2025 11:53
--- NOTE | 2025-02-13 12:00 | NUR ---
DCP: [facility] Call placed to EC son Elijah Munguia . Discussed dcp w him, he mentions that he has been wanting [facility] [place]. Phone consent obtained. Referral/clinical faxed to [facility]. Jane eason [facility] notified of new referral.
--- NOTE | 2025-02-13 16:28 | NUR ---
[facility] Per Jane they are accepting pt for hospice services. She mentions that they are trying to coordinate DME delivery w pt's son. OOH DNR remains pending at this time. Spoke w pt's son Elijah Munguia . He mentions that he is currently at home waiting for DME to arrive. Discussed [facility]OH DNR. Per Mr Munguia he feels comfortable transporting pt via private vehicle vs EMS @ [place]. Update Lefty PALOMARES. States plan for poss dc tomorrow.
[2025-02-13] MEDS: IpraTROPium/alBUTERol SULFATE 3 ML SOLUTION IH SCH (18:16)
[2025-02-14] VITALS (30 sets, daily range): BP systolic 0–127; BP diastolic 0–67; PULSE 0–127; RESP 0–39; TEMP 97.3–98.2; O2SAT 82–100
[2025-02-14 03:59] LABS: ABG BASE EXCESS -10.1 mmol/L (-2.0-3.0); ABG HCO3 16.8 mmol/L (21.0-28.0); ABG OXYGEN SATURATION 61.9 % (94.0-98.0); ABG PCO2 40 mmHg (35-48); ABG PH 7.236 (7.350-7.450); CARBON MONOXIDE 0.2 % (0.5-1.5); DEVICE COMMENT LB RN JEAN; HHb 37.7; PO2, ARTERIAL BG < 45.0 mmHg (83.0-108.0); VENT MODE, BG NC (ROOM AIR)
[2025-02-14] MEDS ORDERED: [UNRECOGNIZED DRUG - OTHER] IV ONE (04:00)
[2025-02-14] MEDS ORDERED: 0.9%NACL 1000ML 1,000 ML IV ONE (04:00)
--- NOTE | 2025-02-14 04:15 | NUR ---
PATIENT UPDATE CHANGE IN LEVEL OF MENTATION AT 033 , LETHARGIC,B/P WAS 67/48 MMHG, O2 SAT AT 90%, PLACED ON 2L PER N/C. TUBE FEEDING STOPPED AT 033. CALLED Patricia RODRIGUEZ MARINA PORTER WITH ORDERS FOR STAT ABG, CXR AND LACTIC ACID. NS 1L BOLUS STARTED PER ORDER,ABG WITH PH OF 7.231, PO2 <45, ORDER FOR BIPAP AT 16/8, RATE OF 12 AT 100% FIO2 WHICH WAS STARTED BY RTVee RODRIGUEZ ON THE FLOOR, PT SEEN AND EXAMINED. ALSO TRIED TO CALL THE SON BUT WITHOUT ANY RESPONSE. NO CLEAR CODE STATUS ALTHOUGH PENDING DISCHARGE TO [facility] IN THE AM. LASIX 20MG IV GIVEN AFTER MARINA PORTER LOOKED AT THE CXR RESULT. ACTIVE ORDER FOR TRANSFER TO ICU.
[2025-02-14] MEDS: furoSEMIDE 20MG VIAL IV ONE (04:32)
--- NOTE | 2025-02-14 04:40 | NUR ---
ICU TRANSFER REPORT GIVEN TO RENETTA RN WHO WILL ASSUME CARE OF PATIENT IN THE ICU. CALLED SON WITH THE POWER OF SENIOR ESCROW OFFICER 3X AT 0338, 0403 AND 0433, STILL WITHOUT ANY RESPONSE.
[2025-02-14] MEDS ORDERED: ALBUMIN HUMAN 25% 100 ML IV SCH (05:00)
[2025-02-14] MEDS ORDERED: metRONIDazole 500MG/100ML BAG 100 ML IVPB SCH (05:00)
[2025-02-14 05:14] LABS: BASOPHILS # (AUTO) 0.01 K/uL (0.00-0.20); BASOPHILS % (AUTO) 0.4 % (0.0-5.0); HEMATOCRIT 38.2 % (42-54); IMMATURE GRANULOCYTE ABSOLUTE 0.01 K/uL (0-1); LYMPHOCYTES # (AUTO) 0.3 K/uL (1.0-4.8); LYMPHOCYTES % (AUTO) 12.3 % (21.0-51.0); MEAN CORPUSCULAR HEMOGLOBIN 27.4 pg (27.0-33.0); MEAN CORPUSCULAR HGB CONC 30.9 g/dL (32.0-36.0); MEAN CORPUSCULAR VOLUME 88.6 fL (79-99); MONOCYTES % (AUTO) 0.4 % (3.0-13.0); NEUTROPHILS # (AUTO) 2.1 K/uL (1.8-7.7); NEUTROPHILS % (AUTO) 86.5 % (40.0-77.0); NUCLEATED RED BLOOD CELLS 0.8 % (0.0-0.19); PLATELET COUNT (AUTO) 364 K/uL (130-400); RED BLOOD CELL COUNT(AUTO) 4.31 MIL/uL (4.50-6.20); WHITE BLOOD COUNT (AUTO) 2.4 K/uL (4.8-10.8)
[2025-02-14 05:17] LABS: CREATININE 1.1 mg/dL (0.5-1.3); POTASSIUM 4.2 mmol/L (3.5-5.1)
[2025-02-14 05:28] LABS: ALBUMIN 1.9 g/dL (3.5-5.0); BILIRUBIN,TOTAL 0.7 mg/dL (0.2-1.0)
[2025-02-14] MEDS: SODIUM BICARB 50MEQ 50ML VIAL IV ONE ×2 (05:43→08:50)
[2025-02-14] MEDS: PHENYLEPHRINE HCL 10/NS 250ML IV PRN (06:00)
--- NOTE | 2025-02-14 07:10 | NUR ---
PATIENT WITH B/P OF 81/34, HR 131, ON A BIPAP, LETHARGIC, NON VEERB
--- NOTE | 2025-02-14 07:10 | NUR ---
PATIENT WITH B/P OF 81/34, HR 131, ON A BIPAP, LETHARGIC, NON VERBAL. REQUESTED ABG PH 7.08, CO2 73, PO2 71, HCO3 21.6 BASE EXCESS -9.2 LACTIC ACID 6.02 REPORTED FINDINGS TO MARLA FREGOSO PER SLIP MIXER PREPARE TO INTUBATE PATIENT IS FULL CODE AT THIS TIME. PATIENT STILL FULL CODE PER CASE MANAGEMENT NOTES PATIENT FAMILY HAD REQUESTED HOSPICE ON 02/13/2025 PLAN WAS FOR PATIENT TO BE D/C HOME TODAY ON HOSPICE. ATTEMPTED TO CALL SON 3 TIMES, NO ANSWER CALL GOES DIRECTLY TO A RECORDING UNABLE TO LEAVE VM, NOT SET UP. RT MADE AWARE TO PREPARE FOR INTUBATION.
--- NOTE | 2025-02-14 07:20 | NUR ---
SON LUX BURRELL CALLED BACK, ILDEFONSO DRY CANS OPERATOR UPDATED SON ON PATIENTS CONDITION PER SON PATIENT TO BE DNR, NO INTUBATION, RT MADE AWARE 2 NURSE DNR CONSENT WITNESSED.
[2025-02-14 07:42] LABS: ABG BASE EXCESS -9.2 mmol/L (-2.0-3.0); ABG HCO3 21.6 mmol/L (21.0-28.0); ABG OXYGEN SATURATION 87.7 % (94.0-98.0); CARBON MONOXIDE 0.6 % (0.5-1.5); HHb 12.2; VENT MODE, BG NRM (ROOM AIR)
--- NOTE | 2025-02-14 08:07 | HMCIMG ---
CHEST 1VW HISTORY: Change in mental status COMPARISON: 02/09/2005 FINDINGS: A frontal projection of the chest was obtained. Extensive right lung pulmonary infiltrates are seen. Small left pleural effusion is seen. There is small left basilar pneumothorax. The heart is normal in size. There is scoliosis. Aortic calcifications are seen. IMPRESSION: 1. Right lung pulmonary infiltrates worse from previous study. Suspect tiny left basilar pneumothorax. Report was given to the critical care team.
[2025-02-14 08:29] LABS: BAND NEUTROPHILS % (MANUAL) 1 % (0-2); LYMPHOCYTES % (MANUAL) 9 % (22-44); MAN.DIFF COMMENT-IMPRESSION MANUAL DIFFERENTIAL; METAMYELOCYTES % 2 % (0-0); MONOCYTES % (MANUAL) 11 % (2-9); MYELOCYTES % 3 % (0-0); REACTIVE LYMPHOCYTES 6 % (0-0); SEGMENTED NEUTROPHILS % 68 % (40-70); TOTAL CELLS COUNTED 100
[2025-02-14] MEDS: VASOpressin 20 UNITS/ML 1ML Vi 20 UNITS in 0.9%NACL 100ML 100 ML IV SCH (08:39)
[2025-02-14 09:01] LABS: ABG PH 7.087 (7.350-7.450)
[2025-02-14 09:02] LABS: ABG PCO2 73 mmHg (35-48)
--- NOTE | 2025-02-14 10:35 | NUR ---
1035 SON WILLIAM ROMAN LUX AT BEDSIDE REQUESTED TO WITHDRAWAL CARE, MARLA FREGOSO MADE AWARE ORDERS RECEIVED. 1056 MORPHINE GIVEN IV FOR COMFORT CARE ALL PRESSORS STOPPED PER SON REQUEST WITHDRAWAL OF CARE AT THIS TIME.
--- NOTE | 2025-02-14 10:38 | PN ---
[facility] PROGRESS NOTE Date Patient Seen: Feb 14, 2025 Time of Visit: 10:38 Supervising Physician: Dr. Rivas Primary Care Physician: [Dr. 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 Currently on propofol at 50 mcg/kg/min, fentanyl at 200mcg/hr, and on pressors with levophed weaning at 0.2 mcg/kg/min, Ventilator settings with ACVC adjusted this morning to TV 450/RR 16/fio2 at 45% and peep of 5. Per family they are confused as to previous discharge 3 days ago. Son was undee the understanding pt was going to start hospice at home. When hospice office was called there was no set up in place. Plans request per pt's family is that possibly optimize medical management get pt off the ventilator when ready and hope to take pt on hospice home with hospice arranged prior to discharge. This was discussed with Peter commercial leasing manager and fam. Family requesting [place] [facility] hosp[facility]. For now we will start sedation vacation and SBT's . He didnt do well on CPAP today due to tavhypnea so we will attempt SBTs again in am. WBCs white count is 17.4 H&H is 30.8 creatinine is normal 0.8 with a GFR over 89. COVID and flu are negative. Strep throat is negative. Chest x-ray with bilateral pneumonia. ET tube at 5.2 cm in the elizabeth ordered and coordinated with the RT to person 1 cm. 02/09/2025: At the time of my evaluation, the patient was lying in bed. He remains intubated and mechanically vented. ABG today showed low PO2 of 56.7 with normal pH and pCO2. On monitor the patient showed no events, no tachycardia or tachypnea. Blood pressure was within normal ranges. Laboratory data today showed improved WBC count 13 .1. No severe anemia or thrombocytopenia. Chemistry panel was unremarkable. Microbiology data so far negative. Chest x-ray today showed presence of a endotracheal tube approx imately the tip is 2 cm above the elizabeth. There were diffuse pulmonary vascular congestion and bilateral pneumonic infiltrates. No new complaint. 02/10/2025: At the time of my evaluation, the patient is lying in bed. He is currently off sedation and a RASS score of -1. He was extubated earlier today and is currently on a Ventimask. ABG prior to extubation showed a pH of 7.51, pCO2 34, PO2 340.4 and HC03 of 26.9 with a base excess of 4.3. On the monitor, he is normotensive, no tachycardia or tachypnea. The staff nurse reports no acute events overnight. Mcgregor catheter remains in place and urinary output documented at 9:00 p.m. with a balance of + 199.9. The patient continues on antibiotic coverage with doxycycline, Flagyl and cefepime. He is also on steroid therapy with Solu-Medrol. Laboratory data today reviewed, CBC showed resolved leukocytosis, no profound anemia or thrombocytopenia. Chemistry panel was unremarkable. No other complaint. 02/11/2025: At the time of my evaluation, the patient was lying in bed. He is awake alert and following commands. Family members were present visiting with the patient. Staff nurse reports no acute events overnight. On the monitor, the patient is hemodynamically stable and remains on oxygen supplementation via nasal cannula. Laboratory data was unremarkable no new microbiology data. No new imaging for review. Currently, the patient remains on antibiotic coverage with doxycycline, Flagyl and cefepime. He also receives bronchodilator therapy and IV Solu-Medrol. No other complaint. 02/12 This is a late entry. Vitals reviewed and are within normal limits, he continues on room air. He has diuresed 2300ml in the last 24 hours. Continues on IV abx. CBC and BMP are unremarkable. Family is requesting hospice services, case management consulted for the same. 02/13 patient is evaluated at bedside. No family at bedside. He continues on tube feeds at 60 mL an hour per nursing staff. Continues on IV antibiotics for mycoplasma pneumoniae and aspiration pneumonia. Most recent labs and vitals are reviewed and are unremarkable. Patient is pending hospice per son request. Pending case management evaluation for the same. 02/14/2025: At the time of my evaluation, the patient lying bed. He remain on BiPAP mask, currently 100%. Laboratory data showed a WBC 2.4 H&H 11.8/38.2 and a platelet count of 364. Chemistry panel was remarkable for a CO2 of 20, total protein of 5.0 and albumin of 1.9. Imaging of the chest showed right lung pulmonary infiltrate that is worsening and concern for a tiny pneumothorax. The patient continued on vasopressor therapy, empiric antibiotic therapy and broncho dilation. No other complaint. REVIEW OF SYSTEMS: 12-point system review was carried out and pertinent positive documented above. Otherwise pertinent negative. PHYSICAL EXAM: GENERAL: Chronically ill appearing. HEENT: EOMI, Sclera non icteric, dry mucosa NECK: Supple, no JVD, trachea midline LUNGS: Diminished breath sounds bilaterally. No wheezes, rhonchi or crackles HEART: Regular rate and rhythm. Normal S1 and S2, without murmurs, tachy ABD: Abdomen soft, nontender. Bowel sounds present, PEG tube in situ EXT: No clubbing cyanosis or edema, left leg erythema with ecchymosis-> no edema NEURO: Awake, alert and following commands. Vital Signs (last 8hr) Date Time Temp Pulse Resp B/P (MAP) Pulse Ox O2 Delivery O2 Flow Rate FiO2 02/14/25 09:43 114/22 02/14/25 09:35 90/31 02/14/25 08:41 91/47 02/14/25 08:39 90/50 02/14/25 08:32 92/57 02/14/25 07:45 124 33 100 02/14/25 06:45 127 32 02/14/25 06:42 127 32 02/14/25 06:41 127 32 Non Rebreather 15.0 02/14/25 06:00 91/58 02/14/25 04:44 67 22 82/39 81 Nonrebreathing Mask 100 02/14/25 04:26 41 18 78/39 BIPAP 100 02/14/25 04:22 93/63 BIPAP 100 02/14/25 04:20 73 39 100 02/14/25 04:00 120/66 02/14/25 03:30 97.7 78 22 67/41 92 Room Air LABS: Hematology Labs: Test 02/14/25 04:04 Range/Units White Blood Count 2.4 L 4.8-10.8 K/uL Red Blood Count 4.31 L 4.50-6.20 MIL/uL Hemoglobin 11.8 L 14.0-18.0 g/dL Hematocrit 38.2 L 42-54 % Mean Corpuscular Volume 88.6 79-99 fL Mean Corpuscular Hemoglobin 27.4 27.0-33.0 pg Mean Corpuscular Hemoglobin Concent 30.9 L 32.0-36.0 g/dL Red Cell Distribution Width 15.0 11.0-15.5 % Platelet Count 364 130-400 K/uL Mean Platelet Volume 9.3 7.5-10.5 fL Immature Granulocyte % (Auto) 0.4 0-1 % Neutrophils (%) (Auto) 86.5 H 40.0-77.0 % Lymphocytes (%) (Auto) 12.3 L 21.0-51.0 % Monocytes (%) (Auto) 0.4 L 3.0-13.0 % Eosinophils (%) (Auto) 0.0 0.0-8.0 % Basophils (%) (Auto) 0.4 0.0-5.0 % Neutrophils # (Auto) 2.1 1.8-7.7 K/uL Lymphocytes # (Auto) 0.3 L 1.0-4.8 K/uL Monocytes # (Auto) 0.0 L 0.1-1.0 K/uL Eosinophils # (Auto) 0.00 0.00-0.70 K/uL Basophils # (Auto) 0.01 0.00-0.20 K/uL Absolute Immature Granulocyte (auto 0.01 0-1 K/uL Segmented Neutrophils % 68 40-70 % Band Neutrophils % 1 0-2 % Lymphocytes % (Manual) 9 L 22-44 % Monocytes % (Manual) 11 H 2-9 % Metamyelocytes % 2 H 0-0 % Myelocytes % 3 H 0-0 % Nucleated Red Blood Cells 0.8 H 0.0-0.19 % Differential Comment MANUAL DIFFERENTIAL Reactive Lymphocytes 6 H 0-0 % White Cell Morphology Comment See comments Platelet Morphology Comment See comments Red Blood Cell Morphology NORMAL Chemistry Labs: Test 02/14/25 08:56 02/14/25 06:22 02/14/25 04:04 Range/Units Lactic Acid Level 7.1 H 0.8-2.5 mmol/L Whole Blood Glucose 118 H 70-110 MG/DL Sodium Level 140 136-145 mmol/L Potassium Level 4.2 3.5-5.1 mmol/L Chloride Level 107 101-111 mmol/L Carbon Dioxide Level 20 L 21-32 mmol/L Blood Urea Nitrogen 34 H 7-18 mg/dL Creatinine 1.1 0.5-1.3 mg/dL Glomerular Filtration Rate Calc 68 >90 mL/min Random Glucose 125 H 70-105 mg/dL Total Calcium 7.3 L 8.5-10.1 mg/dL Total Bilirubin 0.7 0.2-1.0 mg/dL Aspartate Amino Transf (AST/SGOT) 23 10-37 U/L Alanine Aminotransferase (ALT/SGPT) 19 12-78 U/L Alkaline Phosphatase 53 50-136 U/L Ammonia 15 11-32 umol/L Total Protein 5.0 L 6.0-8.3 g/dL Albumin 1.9 L 3.5-5.0 g/dL DIAGNOSTICS / RADIOLOGY RESULTS: [ ] PLAN -continue ICU Care -Titrate oxygen to keep sats >92% -Daily SBT as tolerated -Sedation vacation q am as tolerated: Currently on Propofol and Fentanyl drips switch to Precedex -+ for mycoplasma, stop vanco, start doxy and continue cefepime. -Pending blood CX -Obtain pneumo studies -Start on IV Solumedrol therapy and wean as possible -Maintain hemodynamic stability to keep MAP >65: Current pressor Levophed, add Neosynephrine if HR continues to be tachy 02/09/2025: For now, going to continue current management for the patient. He will remain on sedation with Precedex and planned for early sedation vacation. We will continue on mechanical ventilation for support. Daily CPAP trials until parameters are met for extubation. The patient will continue antibiotic coverage with doxycycline, cefepime and Flagyl. We will correct any electrolyte imbalance as necessary. We will repeat surveillance labs in the morning. We will monitor the patient's progress and response to management. We will con tinue to provide general supportive care, GI and DVT prophylaxis. Further orders per attending MD and hospital course. 02/10/2025: For now, we are going to continue current management for the patient. We are going to monitor him on the Ventimask and we will wean oxygen supplementation as necessary. We will continue nutritional support via the PEG tube. Based on my understanding, the plan is for the patient to return home with hospice care. Family members agreed on home with hospice only after he is extubated. Since the patient is now extubated, we will monitor him for the next 24 hours and if remained stable, we will notify case management to arrange for hospice care of choice. For now, we will monitor the patient's progress and response to management. We will continue to provide general supportive care, GI and DVT prophylaxis. Further orders per attending MD and hospital course. 02/14/2025: For now, we are going to continue current management for the patient. I did have a phone conversation with the son regarding the patient's critical condition and poor prognosis. We did discuss options for intubation and possible need for chest tube if the concern for pneumothorax worsens. He did state "my father has suffered a lot and I do not want to see him suffering anymore". He decided on DNR/DNI. NEURO: Minimize central acting medications as possible. Fall Precautions. Well lighted room through the day and minimize interruptions through the night to prevent acute delirium. PULMONARY: Supplemental 02 as needed Titrate Fio2 to keep Spo2 > or = 90% DuoNebs and CPT as needed IS hourly while awake for pulmonary hygiene Out of bed to chair as tolerated VAP Bundle CARDIOVASCULAR: Follow hemodynamics. Titrate vasopressor to keep MAP >65 or systolic blood pressure >95mmHg DRIPS: LINES: GI & NUTRITION: Continue nutritional support Aspirations precautions Prokinetic agents and laxatives as needed KIDNEYS & ELECTROLYTES: Strict monitoring of intake and output Daily weights Avoid nephrotoxic agents Monitor electrolytes and replace as needed Goal urine output of 30mL/hr or 0.5mL/kg/hr Urine output: [ ] Fluid Balance: [ ] ENDOCRINE: Maintain blood glucose between 100-180 at all times. Insulin sliding scale for blood glucose management INFECTIOUS DISEASE: Trend temperature. Mora-culture if febrile. Micro: [ ] + for mycoplasma Antibiotics: [ Cefepime, Flagyl and doxy] HEMATOLOGY & COAGULATION: Monitor H&H. Keep Hgb > 7 Transfuse 1 unit of PRBC for Hgb < 7 Transfuse 1 pack of platelets of platelets < 20, 000 Watch for any signs and symptoms of bleeding SKIN: Pressure ulcer prevention per facility protocol Rehab: PT/OT Prophylaxis: GI: [ Protonix] DVT: Lovenox ] Code Status: Full Resuscitation Disposition: ICU Other: I personally spent 42 minutes of critical care time in treatment of this patient. This includes patient management, time at bedside, time reviewing tests, labs, appropriate images and studies, documentation, and patient care coordination. This time excludes separately billable procedures.. Case was discussed and seen with my supervising physician. The above plan was formulated and agreed upon. BHARATHI FREGOSO NP Feb 14, 2025 10:38
[2025-02-14] MEDS: morPHINE 2 MG SYG IVP PRN (10:56)
[2025-02-14] MEDS ORDERED: diazePAM 5 MG/ML 2 ML SYG IV PRN (11:00)
--- NOTE | 2025-02-14 11:34 | NUR ---
PATIENT WITH NO HR, NO B/P NO RR, MARLA FREGOSO AND ALEXSANDRA FANG MADE AWARE. HAN ROMAN AT BESIDE UPDATED.
== END 2025-02-14 11:34 | DRG 871 ==
LOC: EDH 22:34 → EDHIP 02-08 01:42 → 2CV 02-08 04:56 → 2BH 02-10 04:55 → 3CH 02-11 17:15 → 3DH 02-13 22:20 → 2CH 02-14 05:32
PROVIDERS: ADMIT Internal Medicine Critical Care Medicine; ATTEND Internal Medicine Critical Care Medicine
PROC: 5A1945Z Respiratory Ventilation, 24-96 Consecutive Hours (ICD-10-PCS; principal; 2025-02-08)
PROC: 0BH18EZ Insertion of Endotracheal Airway into Trachea, Via Natural or Artificial Opening Endoscopic (ICD-10-PCS; 2025-02-08)
PROC: 5A09357 Assistance with Respiratory Ventilation, Less than 24 Consecutive Hours, Continuous Positive Airway Pressure (ICD-10-PCS; 2025-02-08)
PROC: 5A09357 Assistance with Respiratory Ventilation, Less than 24 Consecutive Hours, Continuous Positive Airway Pressure (ICD-10-PCS; 2025-02-08)
PROC: 5A09357 Assistance with Respiratory Ventilation, Less than 24 Consecutive Hours, Continuous Positive Airway Pressure (ICD-10-PCS; 2025-02-14)
DX: A41.9 Sepsis, unspecified organism (principal); J15.7 Pneumonia due to Mycoplasma pneumoniae; R65.21 Severe sepsis with septic shock; J96.01 Acute respiratory failure with hypoxia; J69.0 Pneumonitis due to inhalation of food and vomit; E87.20 Acidosis, unspecified; J44.0 Chronic obstructive pulmonary disease with (acute) lower respiratory infection; J90 Pleural effusion, not elsewhere classified; D62 Acute posthemorrhagic anemia; R47.01 Aphasia; E86.0 Dehydration; E88.09 Other disorders of plasma-protein metabolism, not elsewhere classified; R13.10 Dysphagia, unspecified; Z66 Do not resuscitate; K59.09 Other constipation; F03.90 Unspecified dementia, unspecified severity, without behavioral disturbance, psychotic disturbance, mood disturbance, and anxiety; I10 Essential (primary) hypertension; Z93.1 Gastrostomy status; Z86.73 Personal history of transient ischemic attack (TIA), and cerebral infarction without residual deficits; Z88.0 Allergy status to penicillin
CPT/HCPCS: 31500; 36415; 36600; 71045; 80048; 80053; 81001; 82140; 82435; 82550; 82803; 82947; 82948; 83036; 83605; 83735; 83880; 84100; 84132; 84145; 84295; 84443; 84484; 85018; 85025; 85610; 85730; 86738; 87040; 87086; 87449; 87491; 87591; 87635; 87804; 87880; 93005; 94002; 94003; 94640; 94660; 94664; 96361; 96374; 99291; G0378; J0692; J1815; J1940; J2270; J2371; J2470; J2704; J2919; J3010; J3360; J3475; J3490; J7050; A9900; J3370